=== PATIENT | male | born 1965 | race Caucasian/White ===

== ENCOUNTER 2018-03-15 15:10 | Inpatient (IN) | payer OTHER ==
[~2018-03-15] VITALS: Ht 167.6 cm; Wt 69.4 kg
--- NOTE | 2018-03-15 15:12 | NUR ---
PT BIBA BLS TO BED 3
[2018-03-15 15:13] VITALS: BP 163/83
--- NOTE | 2018-03-15 15:15 | NUR ---
EMS GAVE TYLENOL AT 15.00 PM
--- NOTE | 2018-03-15 15:15 | NUR ---
Note undone in ED - 03/15/18 at 1610 by [email or web address] 53/M kusum from [facility] d/t JANE & elevated blood pressure. Per dice dealer report, [id number]=[phone], [id number]=[phone]. Patient also tachycardiac and hot to the touch. CAN'T GET DIALYSIS TODAY. Patient sts he started to feel "warm" yesterday. MED HX : ESRD WITH HD ON & SAT, dm,htn,cva (left sided weakness), "fx left shoulder and leg". DENIES N/V/D;DIALYSIS SITE AT RIGHT UPPER CHEST & RUDY SHUNT. AAOX4 , WEAK LEFT SIDE. LUNGS CLEAR BL; HR TACHY. PT DENIES ANY CP, SOB, OR COUGH AT THIS TIME; PATIENT STATES PAIN OF 6/10 AT THIS TIME. PATIENT POSITIONED FOR COMFORT; HOB ELEVATED; BEDRAILS UP X2; BED DOWN. LEILANI MONTES MADE AWARE OF PT STATUS. Addendum: 03/15/18 at 1551 by [email or web address] Amendment undone in ED - 03/15/18 at 1556 by [email or web address] BMS GAVE TYLENOL AT 15.00 PM
--- NOTE | 2018-03-15 15:15 | NUR ---
53/M kusum from [facility] d/t JANE & elevated blood pressure. Per mapping editor report, [id number]=[phone], [id number]=[phone]. Patient also tachycardiac and hot to the touch. CAN'T GET DIALYSIS TODAY. Patient sts he started to feel "warm" yesterday. MED HX : ESRD WITH HD ON MON, & SAT, htn,cva (left sided weakness), "fx left shoulder and leg". DENIES N/V/D;DIALYSIS SITE AT RIGHT UPPER CHEST & RUDY SHUNT. AAOX4 , WEAK LEFT SIDE. LUNGS CLEAR BL; HR TACHY. PT DENIES ANY CP, SOB, OR COUGH AT THIS TIME; PATIENT STATES PAIN OF 6/10 AT THIS TIME. PATIENT POSITIONED FOR COMFORT; HOB ELEVATED; BEDRAILS UP X2; BED DOWN. ER MD MADE AWARE OF PT STATUS.
[2018-03-15] MEDS ORDERED: ASPI81CT89 PO (15:32)
[2018-03-15] MEDS ORDERED: ATOR40TA PO (15:35)
--- NOTE | 2018-03-15 15:35 | NUR ---
Jose Carlos huang in [facility] - 03/15/18 at 1542 by [email or web address] X RAY AT BEDSIDE
[2018-03-15] MEDS ORDERED: CALC0.5S6 PO (15:36)
[2018-03-15] MEDS ORDERED: AMLO5TAB PO (15:38)
--- NOTE | 2018-03-15 15:38 | NUR ---
XRAY AT BEDSIDE
[2018-03-15] MEDS ORDERED: LIP80 PO (15:40)
[2018-03-15] MEDS ORDERED: CARV12.5 PO (15:40)
[2018-03-15] MEDS ORDERED: LINA5TAB PO (15:41)
[2018-03-15] MEDS ORDERED: LOSA100T1 PO (15:42)
[2018-03-15] MEDS ORDERED: PHO667 PO (15:43)
[2018-03-15] MEDS ORDERED: MULT-574 PO (15:44)
[2018-03-15] MEDS ORDERED: CLOP75TA26 PO (15:45)
[2018-03-15] MEDS ORDERED: HYDR100T79 PO (15:46)
[2018-03-15 15:47] LABS: BASOPHILS # (AUTO) 0.1 K/uL (0.00-0.22); BASOPHILS % (AUTO) 0.9 % (0.0-2.0); EOSINOPHILS % (AUTO) 0.3 % (0.0-4.0); HEMATOCRIT 31.1 % (36-52); HEMOGLOBIN 9.8 g/dL (12.0-18.0); LYMPHOCYTES # (AUTO) 0.4 K/uL (2.0-11.5); LYMPHOCYTES % (AUTO) 2.9 % (20.5-51.1); MEAN CORPUSCULAR HEMOGLOBIN 26 pg (27-31); MEAN CORPUSCULAR HGB CONC 32 g/dL (33-37); MONOCYTES # (AUTO) 0.7 K/uL (0.8-1.0); MONOCYTES % (AUTO) 4.8 % (1.7-9.3); NEUTROPHILS # (AUTO) 13.3 K/uL (1.8-7.7); NEUTROPHILS % (AUTO) 91.1 % (42.2-75.2); PLATELET COUNT (AUTO) 205 K/uL (140-450); RED BLOOD CELL COUNT(AUTO) 3.75 MIL/uL (4.20-6.10); RED CELL DISTRIBUTION WIDTH 16.9 % (11.6-13.7); WHITE BLOOD COUNT (AUTO) 14.6 K/uL (4.8-10.8)
[2018-03-15 15:48] LABS: APPEARANCE,URINE CLEAR (CLEAR); BILIRUBIN,URINE NEGATIVE (NEGATIVE); BLOOD, URINE 2+ (NEGATIVE); COLOR,URINE YELLOW (YELLOW); LEUKOCYTE ESTERASE ,URINE 1+ (NEGATIVE); NITRITE, URINE NEGATIVE (NEGATIVE); PH,URINE 8.5 (5.0-9.0); UGLUCOSE 1+ (NEGATIVE)
[2018-03-15] MEDS ORDERED: PANT40EC PO (15:50)
[2018-03-15] MEDS ORDERED: FURO-570 PO (15:50)
[2018-03-15 15:54] LABS: RBC,URINE 11-20 (MOD) /HPF (0-5)
[2018-03-15 16:13] LABS: PROTHROMBIN TIME 10.7 secs (10.8-13.4)
[2018-03-15 16:35] LABS: ANION GAP 15.8 (8-16); CARBON DIOXIDE 25.5 mmol/L (21-32); POTASSIUM 6.3 mmol/L (3.5-5.1)
[2018-03-15 16:36] LABS: ALBUMIN 3.2 g/dL (3.4-5.0); CREATININE 11.7 mg/dL (0.7-1.3); TOTAL BILIRUBIN 0.5 mg/dL (0.0-1.0)
[2018-03-15] MEDS ORDERED: CALCIUM CHLORIDE 10% 100 MG/ML SYR IVP ONE (16:40)
[2018-03-15] MEDS ORDERED: SODIUM POLYSTYRENE 15 GM/60 ML UDBTL PO ONE (16:40)
[2018-03-15] MEDS ORDERED: DEXTROSE 50% 50 ML SYR IVP ONE (16:40)
[2018-03-15] MEDS ORDERED: SODIUM BICARBONATE 8.4% PFS 50 MEQ/50 ML SYR IVP ONE (16:40)
[2018-03-15] MEDS ORDERED: INSULIN REGULAR, HUMAN 100 UNIT/ML VIAL IVP ONE (16:40)
[2018-03-15] MEDS ORDERED: LEVOFLOXACIN 750 MG/D5W PREMIX 150 ML IV ONE (16:45)
[2018-03-15] MEDS ORDERED: ONDANSETRON 4 MG/2 ML VIAL IVP PRN (17:10)
--- NOTE | 2018-03-15 17:53 | NUR ---
PT TAKEN TO FLOOR BY PIA TAVERAS AND EMT TAJ
[2018-03-15 17:55] VITALS: BP 182/88
--- NOTE | 2018-03-15 18:04 | NUR ---
Patient will be admitted to care of dr multani. Admited to TELE. Will go to room 113. Belongings list completed. Report to SANDI AUSTNI RN.
--- NOTE | 2018-03-15 18:10 | NUR ---
RECEIVED PT FROM ED NURSE. PT IS ALERT AND AWAKE; PT IS TAJIK-SPEAKING ONLY. SKIN IS INTACT. PT HAS LEFT-SIDED WEAKNESS DUE TO CVA. IV SITE NOTED ON LFA, 18 GAUGE. PT IS ON 2L O2 NC. PT HAS A RUE FISTULA FOR DIALYSIS, THRILL NOTED; DRESSING NOTED ON R UPPER CHEST, PER PATIENT IT WAS AN OLD DIALYSIS ACCESS SITE WHICH WAS D/C RECENTLY. PT IS INCONTINENT. PER PT, HE HAD RECEIVED THE FLU VACCINE 2 WEEKS AGO. MRSA NASAL SWAB SENT TO LAB. BED IS IN LOW POSITION, CALL LIGHT IS WITHIN REACH, WILL CONTINUE TO MONITOR.
--- NOTE | 2018-03-15 18:28 | NUR ---
DR DONAHUE CALLED AND ORDERED HEMODIALYSIS TODAY . CALLED AND NOTIFIED TAYLOR THAT PATIENT NEEDS DIALYSIS TONIGHT.
--- NOTE | 2018-03-15 19:10 | NUR ---
PT REPORT GIVEN AT BEDSIDE TO DIET ATTENDANT NURSE JHOAN. PT ENDORSED IN STABLE CONDITION, NO S/S OF DISTRESS.
--- NOTE | 2018-03-15 19:11 | NUR ---
RECEIVED REPORT FROM DAYSHIFT NURSE AT BEDSIDE FOR CONTINUITY OF CARE. PT AAOX3. PT IV NOTED LFA 18G SALINE LOCK. PT HAS RUE FISTULA. NO SOB NO S/S OF DISTRESS ON 2L O2 NC. TURKMEN SPEAKING. SKIN INTACT RUC OLD CENTRAL LINE. BED LOWERED CALL LIGHT WITHIN REACH WILL CONTINUE TO MONITOR.
[2018-03-15] MEDS ORDERED: VANCOMYCIN PER PHARMACY MC PRN (20:15)
--- NOTE | 2018-03-15 20:25 | NUR ---
RANDI FRANKLIN. PT STATING SOB. AND HR IS 130'S SINUS TACHY. Addendum: 03/15/18 at 2238 by Blanca Robles RN TIME WAS 222
--- NOTE | 2018-03-15 20:30 | NUR ---
ASSESSED VITAL SIGNS. PT IS ON 4L NC O2. PT HAS TEMP 98.6 B, 97% O2 ON 4L NC. HR 131 BP: 188/92.
[2018-03-15] MEDS ORDERED: PIPERACILLIN/TAZOBACTAM 2.25 GM in DEXTROSE 5% 50 ML IV SCH (21:00)
[2018-03-15] MEDS ORDERED: PIPER/TAZO 2.25GM/D5W PREMIX 50 ML IV SCH (21:00)
[2018-03-15] MEDS ORDERED: VANCOMYCIN HCL 750 MG in DEXTROSE 5% 250 ML IV SCH (21:30)
[2018-03-15] MEDS ORDERED: CEFEPIME 1,000 MG in DEXTROSE 5% 50 ML IV SCH (22:00)
[2018-03-15] MEDS ORDERED: METOPROLOL 25 MG TAB PO SCH (22:30)
[2018-03-15] MEDS ORDERED: METOPROLOL 25 MG TAB ONE (22:31)
--- NOTE | 2018-03-15 22:32 | NUR ---
RECEIVED CALL FROM NOEMI AND LET MD KNOW OF PT CURRENT CONDITION. MD ORDERED METOPROLOL 25MG PO Q12H. WILL ADMIN.
--- NOTE | 2018-03-15 22:45 | NUR ---
ADMIN TYLENOL FOR FEVER 102.1. ADDED ICE PACK WILL CONTINUE TO MONITOR.
--- NOTE | 2018-03-15 22:58 | NUR ---
DIALYSIS NURSE AT BEDSIDE WILL START DIALYSIS. DIALYSIS NURSE AWARE OF HR 127 AND HAS ORDERED TO PROCEED WITH DIALYSIS FROM MD. WILL CONTINUE TO MONITOR.
[2018-03-15] MEDS: ACETAMINOPHEN 325 MG TAB PO PRN (23:01)
--- NOTE | 2018-03-15 23:30 | NUR ---
DIALYSIS NURSE COULD NOT GET DIALYSIS STARTED. WILL CALL SENIOR WEB SERVICES DEVELOPER.
--- NOTE | 2018-03-15 23:38 | NUR ---
DOPE POURER AWARE OF FISTULA UNABLE TO DO DIALYSIS. TOO SPOKE TO DIALYSIS NURSE AND AWARE. SPOKE TO MD GAGE AND SHE ASKED ABOUT KAYAXALATE, BICARD, CALCIUM. ORDERED KAYAXALATE 15MG PO ONCE. AND ALSO STATED SHE WILL PLAN TO SCHEDULE CATHETER PLACEMENT TOMORROW. WILL CONTINUE TO MONITOR.
--- NOTE | 2018-03-15 23:45 | NUR ---
TYLENOL EFFECTIVE BUT TEMP STILL ELEVATED AT 101.3. WILL GIVE ICE PACK AGAIN AND CONTINUE TO MONITOR.
[2018-03-15] MEDS ORDERED: CEFEPIME 1,000 MG VIAL ONE (23:58)
[2018-03-16] VITALS: BP 143/81
[2018-03-16] MEDS ORDERED: SODIUM POLYSTYRENE 15 GM/60 ML UDBTL PO SCH
--- NOTE | 2018-03-16 00:07 | NUR ---
TEMP 100.1 WILL CONTINUE TO MONITOR.
[2018-03-16] MEDS ORDERED: VANCOMYCIN 1,000 MG VIAL ONE (00:34)
[2018-03-16] MEDS: MORPHINE SULFATE 2 MG/ML SYR IVP PRN (02:38)
[2018-03-16 03:01] VITALS: BP 143/76
--- NOTE | 2018-03-16 03:38 | NUR ---
ADMIN PAIN MED 1 HR AGO. PAIN MED EFFECTIVE NO SOB NO S/S OF DISTRESS ON RA. WILL CONTINUE TO MONITOR.
[2018-03-16 06:53] LABS: BASOPHILS # (AUTO) 0.1 K/uL (0.00-0.22); BASOPHILS % (AUTO) 0.5 % (0.0-2.0); EOSINOPHILS % (AUTO) 0.2 % (0.0-4.0); HEMOGLOBIN 9.1 g/dL (12.0-18.0); LYMPHOCYTES # (AUTO) 0.9 K/uL (2.0-11.5); LYMPHOCYTES % (AUTO) 8.6 % (20.5-51.1); MEAN CORPUSCULAR HEMOGLOBIN 27 pg (27-31); MEAN CORPUSCULAR HGB CONC 33 g/dL (33-37); MEAN CORPUSCULAR VOLUME 83.9 fL (80-94); MONOCYTES # (AUTO) 0.5 K/uL (0.8-1.0); MONOCYTES % (AUTO) 4.5 % (1.7-9.3); NEUTROPHILS # (AUTO) 8.8 K/uL (1.8-7.7); NEUTROPHILS % (AUTO) 86.2 % (42.2-75.2); PLATELET COUNT (AUTO) 168 K/uL (140-450); RED BLOOD CELL COUNT(AUTO) 3.34 MIL/uL (4.20-6.10); RED CELL DISTRIBUTION WIDTH 16.9 % (11.6-13.7); WHITE BLOOD COUNT (AUTO) 10.2 K/uL (4.8-10.8)
[2018-03-16] MEDS: ACETAMINOPHEN 325 MG TAB PO PRN (06:59)
[2018-03-16 07:17] LABS: ALBUMIN 2.8 g/dL (3.4-5.0); PHOSPHORUS 7.4 mg/dL (2.5-4.9); TOTAL BILIRUBIN 0.6 mg/dL (0.0-1.0)
--- NOTE | 2018-03-16 07:32 | NUR ---
ENDORSED REPORT TO DAYSVAFT NURSE FOR CONTINUITY OF CARE.
--- NOTE | 2018-03-16 07:33 | NUR ---
RECEIVED REPORT FROM THE DOMESTIC TRAVEL CONSULTANT NURSE AT BEDSIDE FOR CONTINUITY OF CARE. PT IS AWAKE AND ORIENTED. INTRODUCED MYSELF AND UPDATED THE BOARDS. PT IS BELIZEAN SPEAKING, BUT SPEAKS SOME DIVEHI. PT HAS A SLIGHT SLURRING OF WORDS. S/P CVA, L SIDED WEAKNESS. PT IS INCONTINENT. REFUSES TO USE THE URINAL. LBM 03/16/18. IV ON L FA 18G SL. R UA FISTULA THAT IS NOT WORKING PER DOMESTIC TRAVEL CONSULTANT. WILL NEED REPLACEMENT CATH FOR DIALYSIS. NO COMPLAINTS OF PAIN. NO SIGNS OF DISTRESS. V/S WITHIN NORMAL RANGE. WILL CONTINUE TO MONITOR PT.
[2018-03-16 07:34] LABS: ANION GAP 16.5 (8-16); CARBON DIOXIDE 23.5 mmol/L (21-32)
[2018-03-16 07:40] LABS: CREATININE 12.1 mg/dL (0.7-1.3)
--- NOTE | 2018-03-16 07:40 | NUR ---
LAB CALLED WITH CRITICAL RESULTS. BUN/CREATININE 98/12.1. PT IS AN HD PT. DID NOT HAVE DIALYSIS YESTERDAY. WILL AWAIT ON MD TO ARRIVE.
[2018-03-16 08:00] VITALS: BP 121/65
--- NOTE | 2018-03-16 08:27 | NUR ---
PATIENT HAS BEEN SCREENED AND CATEGORIZED HIGH NUTRITION RISK. PATIENT WILL BE SEEN WITHIN 1-2 DAYS OF ADMISSION. 03/16/18 03/17/[address]
[2018-03-16] MEDS: VIT-B COMP/VIT-C/FOLIC ACID 1 TAB PO SCH (08:40)
[2018-03-16] MEDS: METOPROLOL 25 MG TAB PO SCH ×2 (08:40→20:10)
[2018-03-16] MEDS: CALCIUM ACETATE 667 MG TAB PO SCH ×3 (08:42→16:43)
--- NOTE | 2018-03-16 08:50 | NUR ---
ADMINISTERED MORNING MEDS. PT TOLERATED WELL. PT SITTING ON SIDE OF BED. FINISHED BREAKFAST. WILL CONTINUE TO MONITOR PT.
--- NOTE | 2018-03-16 09:31 | NUR ---
DR AYALA IS HERE TO ASSESS PT. NOTIFIED HER OF HD FISTULA NOT WORKING. SHE WILL CONTACT DR RALPH AND SEE IF HE CAN PUT IN A JANIS CATH FOR DIALYSIS. ASKED HER FOR AN ORDER FOR PRN NC O2 2L. PT AT 92% ON ROOM AIR BUT WITH EXERTION, IT DROPS TO 80'S. WILL CONTINUE TO MONITOR PT.
--- NOTE | 2018-03-16 09:42 | NUR ---
LAB CALLED BLOOD CULTURE: GRAM POSITIVE COCCI IN CLUSTERS.
[2018-03-16 12:00] VITALS: BP 123/67
--- NOTE | 2018-03-16 12:25 | NUR ---
PT EATING HIS LUNCH. SITTING ON THE SIDE OF BED, NO SIGNS OF COMPLAINTS. ADMINISTERED PHOSLO AND INSULIN COVERAGE. PT TOLERATED WELL. WILL CONTINUE TO MONITOR PT.
[2018-03-16] MEDS: INSULIN LISPRO SLIDING SCALE 100 UNITS/ML VIAL SUBQ PRN (12:27)
[2018-03-16] MEDS: BLOOD GLUCOSE MONITORING 1 DEV DEV FS SCH ×3 (12:29→20:27)
--- NOTE | 2018-03-16 13:20 | NUR ---
CM NOTE INITIAL REVIEW FAXED TO [facility] [phone] VANITA # [phone].
--- NOTE | 2018-03-16 14:10 | NUR ---
PT IS WATCHING TV. NO COMPLAINTS AT THIS TIME. WILL CONTINUE TO MONITOR PT.
--- NOTE | 2018-03-16 14:48 | NUR ---
03/16/18 RD INITIAL ASSESSMENT COMPLETED PLEASE REFER TO NUTRITION ASSESSMENT UNDER CARE ACTIVITY FOR ESTIMATED NUTRITIONAL NEEDS. 1. CONTINUE CCHO-60,RENAL DIET TOLERATED 2. RECOMMEND NEPRO TID. 3. RD TO FOLLOW-UP 5-7 DAYS, LOW RISK ERIK ARNETT, RD
--- NOTE | 2018-03-16 15:40 | NUR ---
DAUGHTER IS HERE, ASKING ABOUT WHEN HE WILL HAVE THE DIALYSIS. STILL WAITING ON DR RALPH. AFTER I HEAR FROM DR RALPH, I WILL NEED TO LET BRANDON, PROGRAMMING DIRECTOR KNOW. WE WILL CONTINUE TO MONITOR PT.
[2018-03-16 16:00] VITALS: BP 140/79
--- NOTE | 2018-03-16 17:45 | NUR ---
WE ARE HOLDING PT'S DINNER JUST IN CASE DR RALPH DOES DECIDE TO PUT IN A JANIS CATH FOR HD. PER DR DONAHUE, ONCE HE PUTS IN THE JANIS CATH, PT CAN HAVE DIALYSIS TOMORROW MORNING. WILL AWAIT DR RALPH'S ORDERS.
--- NOTE | 2018-03-16 19:10 | NUR ---
ENDORSED PT TO THE RETAIL SUPPORT SPECIALIST NURSE AT BEDSIDE FOR CONTINUITY OF CARE. EVERYTHING IS AT BEDSIDE FOR PROCEDURE. CONSENT AND TIME OUT SHEET IN CHART. WAITING ON DR RALPH. US TECH AND CXRY ORDERED AND ON STANDBY. DIALYSIS TOMORROW MORNING. BRANDON [place] HISTORY PROFESSOR AWARE. ALL ORDERS AND LABS PRINTED AND PLACED IN SOFT CHART.
--- NOTE | 2018-03-16 19:11 | NUR ---
RECEIVED REPORT FROM DAYSHIFT NURSE AT BEDSIDE FOR CONTINUITY OF CARE. PT AAOX3. NO SOB NO S/S OF DISTRESS ON RA. PT IV NOTED LAC 18G SALINE LOCK. ALSO HAS FISTULA RUDY. BED LOWERED CALL LIGHT WITHIN REACH WILL CONTINUE TO MONITOR.
[2018-03-16 20:00] VITALS: BP 148/79
[2018-03-16] MEDS ORDERED: CEFEPIME 1,000 MG in DEXTROSE 5% 50 ML IV SCH ×4 (21:00)
--- NOTE | 2018-03-16 23:19 | NUR ---
READ BACK XRAY RESULTS TO ANDRE PAULSON FOR L JANIS CATH PLACEMENT. MD RALPH AWARE AND STATED TO GO AHEAD WITH DIALYSIS AT 0500 03/17.
[2018-03-17] VITALS: BP 144/75
[2018-03-17 04:00] VITALS: BP 147/74
[2018-03-17] MEDS: BLOOD GLUCOSE MONITORING 1 DEV DEV FS SCH ×4 (06:47→20:36)
[2018-03-17 07:04] LABS: ALBUMIN 2.7 g/dL (3.4-5.0); CARBON DIOXIDE 23.8 mmol/L (21-32); POTASSIUM 4.8 mmol/L (3.5-5.1); TOTAL BILIRUBIN 0.5 mg/dL (0.0-1.0)
[2018-03-17 07:14] LABS: HEMATOCRIT 24.3 % (36-52); HEMOGLOBIN 7.7 g/dL (12.0-18.0); MEAN CORPUSCULAR VOLUME 84.6 fL (80-94); RED BLOOD CELL COUNT(AUTO) 2.87 MIL/uL (4.20-6.10); WHITE BLOOD COUNT (AUTO) 5.9 K/uL (4.8-10.8)
[2018-03-17 07:15] LABS: BASOPHILS # (AUTO) 0.6 K/uL (0.00-0.22); BASOPHILS % (AUTO) 0.6 % (0.0-2.0); EOSINOPHILS # (AUTO) 1.9 K/uL (0-0.4); EOSINOPHILS % (AUTO) 1.9 % (0.0-4.0); LYMPHOCYTES # (AUTO) 1.2 K/uL (2.0-11.5); LYMPHOCYTES % (AUTO) 20.5 % (20.5-51.1); MEAN CORPUSCULAR HEMOGLOBIN 27 pg (27-31); MEAN CORPUSCULAR HGB CONC 32 g/dL (33-37); MONOCYTES # (AUTO) 0.7 K/uL (0.8-1.0); MONOCYTES % (AUTO) 11.3 % (1.7-9.3); NEUTROPHILS # (AUTO) 3.9 K/uL (1.8-7.7); NEUTROPHILS % (AUTO) 65.7 % (42.2-75.2); PLATELET COUNT (AUTO) 159 K/uL (140-450); RED CELL DISTRIBUTION WIDTH 15.8 % (11.6-13.7)
--- NOTE | 2018-03-17 07:19 | NUR ---
ENDORSED REPORT TO DAYSHIFT NURSE AT BEDSIDE FOR CONTINUITY OF CARE.
[2018-03-17 07:45] LABS: CREATININE 13.6 mg/dL (0.7-1.3)
--- NOTE | 2018-03-17 07:50 | NUR ---
PATIENT WAS AWAKE, ALERT, SITTING ON THE BED COMFORTABLY. RESPIRATION EVEN, UNLABOR ON ROOM AIR. SKIN DRY AND WARM. IV PATENT AND INTACT. JANIS CATH DRESSING DRY AND CLEAN. DENIED PAIN, SOB AT THIS TIME. PLAN OF CARE WAS DISCUSSED WITH PATIENT. BED AT LOW POSITION, SIDE RAILS UP. CALL LIGHT WITHIN REACH. FALL RISK PRECAUTION ENSURED.
[2018-03-17 08:00] VITALS: BP 141/73
[2018-03-17] MEDS: CALCIUM ACETATE 667 MG TAB PO SCH ×3 (08:45→17:29)
[2018-03-17] MEDS: VIT-B COMP/VIT-C/FOLIC ACID 1 TAB PO SCH (08:46)
[2018-03-17] MEDS: METOPROLOL 25 MG TAB PO SCH ×2 (08:49→20:29)
--- NOTE | 2018-03-17 11:30 | NUR ---
PATIENT AWAKE, ALERT. RESPIRATION EVEN, UNLABOR ON ROOM AIR. DENIED PAIN AT THIS TIME. NO DISTRESS NOTED. CALL LIGHT WITHIN REACH
[2018-03-17 12:00] VITALS: BP 133/67
[2018-03-17] MEDS: INSULIN LISPRO SLIDING SCALE 100 UNITS/ML VIAL SUBQ PRN ×3 (12:17→20:35)
--- NOTE | 2018-03-17 12:25 | NUR ---
PATIENT COMPLAINED OF SOB ON ROOM AIR. PATIENT WAS PLACED ON 2L O2 VIA NC. MEDS WERE GIVEN PER ORDER
[2018-03-17] MEDS: MORPHINE SULFATE 2 MG/ML SYR IVP PRN ×2 (13:41→19:51)
[2018-03-17] MEDS: MUPIROCIN 2% OINT 22 GM TUBE TP SCH (14:25)
[2018-03-17] MEDS: CHLORHEXADINE GLUC 2% CLOTH TP SCH (14:25)
--- NOTE | 2018-03-17 14:30 | NUR ---
PATIENT WAS SLEEPING COMFORATBLY. RESPIRATION EVEN, UNLABOR ON 2L NC, SP02 100%. NO DISTRESS NOTED AT THIS TIME. DIALYSIS WAS AT BEDSIDE. CALL LIGHT WITHIN REACH
[2018-03-17 16:00] VITALS: BP 144/71
--- NOTE | 2018-03-17 16:15 | NUR ---
PATIENT AWAKE, ALERT, SITTING ON EOB COMFORTABLY. RESPIRATION EVEN, UNLABOR ON 2L NC. NO DISTRESS NOTED AT THIS TIME. DENIED PAIN, SOB. CALL LIGHT WITHIN REACH
--- NOTE | 2018-03-17 18:15 | NUR ---
PATIENT AWAKE, ALERT. RESPIRATION EVEN, UNLABOR ON 2L NC. NO DISTRESS NOTED AT THIS TIME. IV PATENT AND INTACT. CALL LIGHT WITHIN REACH
--- NOTE | 2018-03-17 19:24 | NUR ---
ENDORSEMENT GIVEN TO THE SALES AND MARKETING DIRECTOR NURSE. PATIENT IS STABLE AT THIS TIME.
--- NOTE | 2018-03-17 19:25 | NUR ---
RECEIVED PT ON BED, AAOX4, MOSTLY CAMBODIAN SPEAKING BUT SPEAKS A LITTLE SURINAMESE, VITAL SIGNS TAKEN, BP SLIGHTLY ELEVATED, ST ON TELE, DENIES CHEST PAIN, NO SOB NOTED, COMPLAINING OF PAIN TO THE RT UA AV SHUNT SITE, WILL MEDICATE PRN, WITH LEFT IJ HD CATH IN PLACE, DRESSING DRY AND INTACT, PLAN OF CARE DISCUSSED, SAFETY MEASURES IN PLACE, , CALL LIGHT WITHIN REACH, MAINTAIN ON CONTACT ISOLATION.
[2018-03-17 20:00] VITALS: BP 153/77
--- NOTE | 2018-03-17 20:35 | NUR ---
PT SITTING ON SIDE OF BED, BLOOD SUGAR CHECKED WITH 256 RESULT, COVERAGE GIVEN, SNACK PROVIDED, DUE MEDS ADMINISTERED, ALL NEEDS ATTENDED, INSTRUCTED TO USE CALL LIGHT FOR ASSISTANCE, VERBALIZED UNDERSTANDING.
--- NOTE | 2018-03-17 22:10 | NUR ---
PT ASSISTED TO LIE DOWN ON THE BED BY GAETANO JUNIOR, LT IJ HD CATH DRESSING REINFORCED WITH TAPE, MONITORED CLOSELY.
[2018-03-18] VITALS: BP 151/72
--- NOTE | 2018-03-18 03:50 | NUR ---
PT SLEEPING WITH BLANKET OVER HIS HEAD, EASILY AROUSABLE, VITAL SIGNS STABLE, BP SLIGHTLY ELEVATED, DENIES PAIN AND NO SOB NOTED, CONTINUE ON SAFETY PRECAUTION WITH SIDE RAILS UP AND BED ALARM ON, MONITORED CLOSELY.
[2018-03-18 04:00] VITALS: BP 148/85
--- NOTE | 2018-03-18 06:00 | NUR ---
BLOOD SUGAR CHECKED WITH 99 RESULT, NO COVERAGE NEEDED, DENIES PAIN, NO SOB NOTED, MONITORED CLOSELY.
[2018-03-18] MEDS: BLOOD GLUCOSE MONITORING 1 DEV DEV FS SCH ×4 (06:43→20:56)
--- NOTE | 2018-03-18 06:55 | NUR ---
IV LINE LEAKING, NEW IV LINE STARTED TO LEFT HAND WITH GOOD BLOOD RETURN, VANCOMYCIN IVPB STARTED, MONITOR FOR ANY REACTION.
[2018-03-18] MEDS ORDERED: VANCOMYCIN 1,000 MG VIAL IV SCH (07:00)
--- NOTE | 2018-03-18 07:22 | NUR ---
PT AWAKE, NO SIGNS OF DISTRESS, REPORT GIVEN TO RN LOI FOR CONTINUITY OF CARE.
--- NOTE | 2018-03-18 07:24 | NUR ---
RECEIVED BEDSIDE REPORT FROM NURSERY SCHOOL TEACHER NURSE. PATIENT IS AWAKE, ALERT AND ORIENTEDX4. PATIENT HAS URINAL AT BEDSIDE D/T WEAKNESS. SKIN IS INTACT. TELE MONITOR IN PLACE. RUDY AV SHUNT, NOT WORKING. RESTRICTED ARM BAND ON, SIGN POSTED. R EJ HD CATH PLACED ON ACT 5TH. R HAND 22G INFUSING VANCO AT 165. CLEAN, DRY AND INTACT. CONTACT PRECAUTIONS FOR MRSA NARES. FALL PRECAUTIONS IN PLACE. WILL CONTINUE TO MONITOR THE PATIENT. BED IN LOW POSITION. CALL LIGHT WITHIN REACH
[2018-03-18 08:00] VITALS: BP 147/81
[2018-03-18] MEDS: CALCIUM ACETATE 667 MG TAB PO SCH ×3 (08:40→16:42)
[2018-03-18] MEDS: METOPROLOL 25 MG TAB PO SCH ×2 (08:40→20:15)
[2018-03-18] MEDS: VIT-B COMP/VIT-C/FOLIC ACID 1 TAB PO SCH (08:40)
[2018-03-18] MEDS: MORPHINE SULFATE 2 MG/ML SYR IVP PRN (09:00)
--- NOTE | 2018-03-18 09:00 | NUR ---
ADMINISTERED MEDS AND PRN PAIN MEDS. PATIENT TOLERATED WELL. NO SIGNS OF DISTRESS. IV IS INTACT. BED IN LOW POSITION. PATIENT HAD A BM. CLEANED AND TURNED PATIENT W BOILER SHOP MECHANIC. WILL CONTINUE TO MONITOR THE PATIENT
[2018-03-18 10:14] LABS: HEPATITIS A ANTIBODY IGM Negative (Negative); HEPATITIS B CORE AB TOTAL Negative (Negative); HEPATITIS B SURFACE ANTIBODY Reactive (.); HEPATITIS B SURFACE ANTIGEN Negative (Negative)
--- NOTE | 2018-03-18 11:00 | NUR ---
IS AT BEDSIDE. NO COMPLAINTS AT THIS TIME. WILL CONTINUE TO MONITOR THE PATIENT
[2018-03-18 12:00] VITALS: BP 155/68
[2018-03-18] MEDS: CHLORHEXADINE GLUC 2% CLOTH TP SCH (12:27)
[2018-03-18] MEDS: MUPIROCIN 2% OINT 22 GM TUBE TP SCH (12:27)
[2018-03-18] MEDS: INSULIN LISPRO SLIDING SCALE 100 UNITS/ML VIAL SUBQ PRN ×2 (12:30→20:23)
--- NOTE | 2018-03-18 12:30 | NUR ---
ADMINISTERED MED. PATIENT TOLERATED WELL. NO SIGNS OF DISTRESS. BED IN LOW POSITION. WILL CONTINUE TO MONITOR THE PATIENT
--- NOTE | 2018-03-18 14:00 | NUR ---
PATIENT SLEEPING. NO SIGNS OF DISTRESS. WILL CONTINUE TO MONITOR THE PATIENT
[2018-03-18 15:00] LABS: BASOPHILS % (AUTO) 1.1 % (0.0-2.0); EOSINOPHILS # (AUTO) 0.2 K/uL (0-0.4); EOSINOPHILS % (AUTO) 4.5 % (0.0-4.0); HEMATOCRIT 22.2 % (36-52); HEMOGLOBIN 7.1 g/dL (12.0-18.0); LYMPHOCYTES # (AUTO) 1.1 K/uL (2.0-11.5); LYMPHOCYTES % (AUTO) 24.4 % (20.5-51.1); MEAN CORPUSCULAR HEMOGLOBIN 27 pg (27-31); MEAN CORPUSCULAR HGB CONC 32 g/dL (33-37); MEAN CORPUSCULAR VOLUME 83.7 fL (80-94); MONOCYTES # (AUTO) 0.7 K/uL (0.8-1.0); MONOCYTES % (AUTO) 14.4 % (1.7-9.3); NEUTROPHILS # (AUTO) 2.6 K/uL (1.8-7.7); NEUTROPHILS % (AUTO) 55.6 % (42.2-75.2); PLATELET COUNT (AUTO) 145 K/uL (140-450); RED BLOOD CELL COUNT(AUTO) 2.66 MIL/uL (4.20-6.10); WHITE BLOOD COUNT (AUTO) 4.6 K/uL (4.8-10.8)
[2018-03-18 15:25] LABS: ALBUMIN 2.7 g/dL (3.4-5.0); ANION GAP 12.3 (8-16); CARBON DIOXIDE 27.8 mmol/L (21-32); POTASSIUM 4.1 mmol/L (3.5-5.1); TOTAL BILIRUBIN 0.4 mg/dL (0.0-1.0)
[2018-03-18 15:30] LABS: CREATININE 9.2 mg/dL (0.7-1.3)
[2018-03-18 16:00] VITALS: BP 136/71
--- NOTE | 2018-03-18 16:46 | NUR ---
ADMINISTERED MEDS. PATIENT TOLERATED WELL. BED IN LOW POSITION. CALL LIGHT WITHIN REACH. BS 145, NO INSULIN NEEDED.
--- NOTE | 2018-03-18 17:31 | NUR ---
IV WAS OUT. TIP WAS INTACT. NEW IV PLACED ON L HAND 22G. SALINE LOCK. PATIENT TOLERATED WELL. WILL CONTINUE TO MONITOR
--- NOTE | 2018-03-18 18:00 | NUR ---
PATIENT IS EATING. NO SIGNS OF DISTRESS, WILL CONTINUE TO MONITOR THE PATIENT.
--- NOTE | 2018-03-18 19:13 | NUR ---
GAVE BEDSIDE REPORT TO HOSPITAL LABORATORY TECHNICIAN NURSE. PATIENT ENDORSED IN STABLE CONDITION
--- NOTE | 2018-03-18 19:18 | NUR ---
RECEIVED PT SLEEPING, EASILY AROUSABLE, AAOX4, VITAL SIGNS STABLE, DENIES ANY PAIN, NO SOB NOTED, WITH NON-FUNCTIONING RT UA AV SHUNT SITE, WITH LEFT IJ HD CATH IN PLACE, DRESSING DRY BUT LOOSE, WILL REINFORCED, PLAN OF CARE DISCUSSED, SAFETY MEASURES IN PLACE DUE TO LEFT SIDED WEAKNESS SEC TO CVA, CALL LIGHT WITHIN REACH, MAINTAIN ON CONTACT ISOLATION.
[2018-03-18 20:00] VITALS: BP 144/75
[2018-03-18] MEDS ORDERED: cefTRIAXone 1,000 MG VIAL ONE (20:10)
--- NOTE | 2018-03-18 20:30 | NUR ---
BLOOD SUGAR CHECKED WITH 187 RESULT, COVERAGE GIVEN, SNACK PROVIDED, DUE MEDS ADMINISTERED, CALLED [facility] AND TALKED TO TAYLOR TO SCHEDULE HEMODIALYSIS FOR TOMORROW, ALL NEEDS ATTENDED.
--- NOTE | 2018-03-18 21:43 | NUR ---
SEEN PT SITTING ON SIDE OF BED WITH DRESSING TO LT IJ HD CATH PEELING OFF, REINFORCED DRESSING WITH COMPOSITE AND CLOTH TAPE, ASSISTED BY GAETANO JUNIOR TO LAY ON BED, MONITORED CLOSELY.
[2018-03-19] VITALS: BP 149/76
--- NOTE | 2018-03-19 | NUR ---
PT AWAKE WATCHING TV, VITAL SIGNS STABLE, DENIES ANY PAIN, NO NEEDS AT THIS TIME, MONITORED CLOSELY.
[2018-03-19] MEDS: MORPHINE SULFATE 2 MG/ML SYR IVP PRN (03:32)
--- NOTE | 2018-03-19 03:35 | NUR ---
PT COMPLAINING OF ARM PAIN, VITAL SIGNS TAKEN, BP SLIGHTLY ELEVATED, NO SOB NOTED, MEDICATED FOR PAIN WITH MORPHINE IVP, SAFETY MEASURES IN PLACE, MONITORED CLOSELY.
[2018-03-19 04:00] VITALS: BP 158/75
--- NOTE | 2018-03-19 06:00 | NUR ---
PT ASLEEP, EASILY AROUSABLE, BLOOD SUGAR CHECKED WITH 100 RESULT, DENIES PAIN AT THIS TIME, FOR HEMODIALYSIS TODAY, MONITORED CLOSELY.
[2018-03-19] MEDS: BLOOD GLUCOSE MONITORING 1 DEV DEV FS SCH ×4 (06:35→21:00)
--- NOTE | 2018-03-19 07:25 | NUR ---
RECEIVED REPORT FROM FREE LANCE ARTIST RN. PT RESTING IN BED COMFORTABLY. A/O X4. VERBALIZES NEEDS. SKIN DRY AND WARM TO TOUCH. LUNGS CLEAR ON AUSCULTATION. NON-FUNCTIONAL AV SHUNT ON RUDY NOTED. NEW HD CATHETER ON LEFT IJ COVERED WITH DRESSING. DRESSING INTACT. PERIPHERAL LINE ON LEFT HAND 22G NOTED. INTACT LINE. ABDOMEN SOFT, ROUND AND NON-TENDER. ACTIVE BOWEL SOUND. DENIES N/V/D AT THIS TIME. DENIES PAIN. VS WNL. BED IN LOW POSITION LOCKED. HOB ELEVATED. WILL CONTINUE TO MONITOR.
--- NOTE | 2018-03-19 07:28 | NUR ---
PT AWAKE, NO DISTRESS NOTED, BEDSIDE REPORT GIVEN TO PIA LEO FOR CONTINUITY OF CARE.
[2018-03-19 07:37] LABS: BASOPHILS # (AUTO) 0.1 K/uL (0.00-0.22); BASOPHILS % (AUTO) 1.5 % (0.0-2.0); EOSINOPHILS # (AUTO) 0.3 K/uL (0-0.4); EOSINOPHILS % (AUTO) 3.8 % (0.0-4.0); HEMATOCRIT 24.6 % (36-52); HEMOGLOBIN 7.7 g/dL (12.0-18.0); LYMPHOCYTES # (AUTO) 1.5 K/uL (2.0-11.5); LYMPHOCYTES % (AUTO) 22.2 % (20.5-51.1); MEAN CORPUSCULAR HEMOGLOBIN 27 pg (27-31); MEAN CORPUSCULAR HGB CONC 32 g/dL (33-37); MEAN CORPUSCULAR VOLUME 84.2 fL (80-94); MONOCYTES # (AUTO) 0.4 K/uL (0.8-1.0); MONOCYTES % (AUTO) 5.6 % (1.7-9.3); NEUTROPHILS # (AUTO) 4.5 K/uL (1.8-7.7); NEUTROPHILS % (AUTO) 66.9 % (42.2-75.2); PLATELET COUNT (AUTO) 165 K/uL (140-450); RED BLOOD CELL COUNT(AUTO) 2.92 MIL/uL (4.20-6.10); RED CELL DISTRIBUTION WIDTH 16.7 % (11.6-13.7); WHITE BLOOD COUNT (AUTO) 6.7 K/uL (4.8-10.8)
[2018-03-19 07:51] LABS: ANION GAP 20.3 (8-16); POTASSIUM 5.1 mmol/L (3.5-5.1); TOTAL BILIRUBIN 0.4 mg/dL (0.0-1.0)
[2018-03-19 07:54] LABS: CREATININE 10.2 mg/dL (0.7-1.3)
[2018-03-19 07:58] LABS: CARBON DIOXIDE 23.1 mmol/L (21-32)
[2018-03-19 08:00] VITALS: BP 134/72
[2018-03-19] MEDS: METOPROLOL 25 MG TAB PO SCH ×2 (08:06→22:24)
--- NOTE | 2018-03-19 08:06 | NUR ---
PT IS SCHEDULED FOR HD TOADY. BP WNL. LOPRESSOR WILL NOT BE ADMINISTERED.
[2018-03-19] MEDS: CALCIUM ACETATE 667 MG TAB PO SCH ×3 (08:13→16:45)
[2018-03-19] MEDS: VIT-B COMP/VIT-C/FOLIC ACID 1 TAB PO SCH (08:13)
--- NOTE | 2018-03-19 08:30 | NUR ---
BREAKFAST PROVIDED. PT SAID WILL EAT LATER.
--- NOTE | 2018-03-19 08:46 | NUR ---
RECEIVED CALL FROM DR. AYALA. MADE AWARE ABOUT CRITICAL LAB RECEIVED; BUN: 98 CR: 10.2 Ca: 8.1.
--- NOTE | 2018-03-19 09:17 | NUR ---
PT ASSISTED TO SIT AT BEDSIDE. TRAY PROVIDED. EATING BREAKFAST AT THIS TIME.
--- NOTE | 2018-03-19 09:58 | NUR ---
PAGED BRANDON PH #[phone] TO FOLLOW UP HD.
--- NOTE | 2018-03-19 09:59 | NUR ---
RECEIVED CALL BACK FROM BRANDON SAID "LET ME CALL MY NURSE AND WILL CALL YOU." WAITING FOR CALL BACK.
[2018-03-19] MEDS: INSULIN LISPRO SLIDING SCALE 100 UNITS/ML VIAL SUBQ PRN ×2 (11:32→16:51)
[2018-03-19 12:00] VITALS: BP 137/67
[2018-03-19] MEDS: MUPIROCIN 2% OINT 22 GM TUBE TP SCH (12:51)
[2018-03-19] MEDS: CHLORHEXADINE GLUC 2% CLOTH TP SCH (12:51)
--- NOTE | 2018-03-19 13:57 | NUR ---
FAXED CONCURRENT REVIEW TO [facility] [phone] PHONE VANITA [phone]
--- NOTE | 2018-03-19 15:41 | NUR ---
HD COMPLETED. PER HD NURSE HD OUTPUT WAS 2500 ML . BP 147/66 HR 72. NO ACUTE RESPIRATORY DISTRESS NOTED. NO CHANGE IN LOC. WILL CONTINUE TO MONITOR.
[2018-03-19 16:00] VITALS: BP 149/68
--- NOTE | 2018-03-19 18:00 | NUR ---
RESTING IN BED. WATCHING TV. DENIES PAIN AT THIS TIME. LIJ HD CATH SITE DRESSING INTACT. WILL CONTINUE TO MONITOR.
--- NOTE | 2018-03-19 19:37 | NUR ---
REPORT GIVEN TO FIELD HAULER RN FOR CONTINUITY OF CARE. PT ON STABLE CONDITION.
--- NOTE | 2018-03-19 19:40 | NUR ---
RECEIVED PT FROM AHMET RN PT MONEGASQUE SPEAKER AAOX4 ON BEDREST JANIS CATH ON LEFT IJ ON TELEMETRY SR IV ON LEFT HAND INFUSING WELL AV SHUNT ON RT UA NOT FUNCTIONAL INITIAL ASSESSMENT DONE
[2018-03-19 20:00] VITALS: BP 152/75
[2018-03-19] MEDS ORDERED: VANCOMYCIN 1,000 MG in NACL 0.9% 250 ML IV SCH (20:00)
--- NOTE | 2018-03-19 21:40 | NUR ---
BLOOD SUGAR TEST 127 NOT COVERAGE ON TELEMETRY SR
[2018-03-20] VITALS: BP 137/72
--- NOTE | 2018-03-20 01:00 | NUR ---
PT AWAKE WATCHING TV NOT DISTRESS NOTED ON TELEMETRY SR , PT DOES NOT COMPLAINT OF SNY DISCOMFORT AT THIS TIME
[2018-03-20 04:00] VITALS: BP 126/71
--- NOTE | 2018-03-20 04:00 | NUR ---
SPONGE BATH GIVEN LINEN CHANGED REPOSITIONED Q2H NOT DISTRESS NOTED , PT ON TELEMETRY SR
[2018-03-20 06:22] LABS: ALBUMIN 2.6 g/dL (3.4-5.0); CARBON DIOXIDE 26.4 mmol/L (21-32); POTASSIUM 4.4 mmol/L (3.5-5.1); TOTAL BILIRUBIN 0.3 mg/dL (0.0-1.0)
[2018-03-20 06:33] LABS: CREATININE 7.4 mg/dL (0.7-1.3)
[2018-03-20 06:36] LABS: HEMOGLOBIN 6.9 g/dL (12.0-18.0); RED BLOOD CELL COUNT(AUTO) 2.58 MIL/uL (4.20-6.10)
[2018-03-20 06:37] LABS: HEMATOCRIT 21.8 % (36-52); MEAN CORPUSCULAR HEMOGLOBIN 27 pg (27-31); MEAN CORPUSCULAR HGB CONC 32 g/dL (33-37); MEAN CORPUSCULAR VOLUME 83.9 fL (80-94); PLATELET COUNT (AUTO) 168 K/uL (140-450); RED CELL DISTRIBUTION WIDTH 15.2 % (11.6-13.7); WHITE BLOOD COUNT (AUTO) 6.3 K/uL (4.8-10.8)
[2018-03-20 06:38] LABS: BASOPHILS % (AUTO) 0.5 % (0.0-2.0); EOSINOPHILS % (AUTO) 3.6 % (0.0-4.0); LYMPHOCYTES # (AUTO) 1.5 K/uL (2.0-11.5); LYMPHOCYTES % (AUTO) 23.8 % (20.5-51.1); MONOCYTES # (AUTO) 0.5 K/uL (0.8-1.0); MONOCYTES % (AUTO) 7.5 % (1.7-9.3); NEUTROPHILS # (AUTO) 4.1 K/uL (1.8-7.7); NEUTROPHILS % (AUTO) 64.6 % (42.2-75.2)
[2018-03-20 06:39] LABS: EOSINOPHILS # (AUTO) 0.2 K/uL (0-0.4)
[2018-03-20] MEDS: BLOOD GLUCOSE MONITORING 1 DEV DEV FS SCH ×4 (06:52→21:26)
--- NOTE | 2018-03-20 06:52 | NUR ---
BLOOD SUGAR TEST 104 , AND LAB YAHAIRA TO REPORT CRITICAL LAB HH6.9/21.8 [address] BUN71/7.4 DR AYALA WAS CALL AND DR FRANKLIN AUTOMATION CONTROLS SPECIALIST WAITING FOR HIM TO CALL BACK
--- NOTE | 2018-03-20 07:20 | NUR ---
REPORT RECEIVED FROM RAILWAY TRACK PLANT OPERATOR NURSE, PT AWAKE ALERT, SITTING UP IN BED IN NAD, RESP EVEN UNLABORED, SKIN WARM DRY COLOR WNL, DENIES PAIN OR DISCOMFORT, PLAN OF CARE REVIEWED, NO NEEDS AT THIS TIME, ALL SAFETY MEASURES IN PLACE, WILL CONTINUE TO MONITOR.
--- NOTE | 2018-03-20 07:53 | NUR ---
PT SITTING UP AT SIDE OF BED EATING BREAKFAST.
[2018-03-20 08:00] VITALS: BP 130/63
[2018-03-20] MEDS: CALCIUM ACETATE 667 MG TAB PO SCH ×3 (08:43→16:47)
[2018-03-20] MEDS: METOPROLOL 25 MG TAB PO SCH ×2 (08:43→21:30)
[2018-03-20] MEDS: VIT-B COMP/VIT-C/FOLIC ACID 1 TAB PO SCH (08:43)
--- NOTE | 2018-03-20 08:45 | NUR ---
AM MEDS GIVEN, PT ROBERTO PILLS WELL, DENIES PAIN, WARM BLANKET PROVIDED FOR COMFORT, IVF INFUSING WELL, SITE CLEAR, WNL, CALL PHELAN WITHIN REACH, SIDE RAILS UP, [facility] TO MONIT[facility]
--- NOTE | 2018-03-20 11:18 | NUR ---
FAXED CONCURRENT REVIEW TO [facility] [phone] PHONE VANITA [phone]
[2018-03-20 12:00] VITALS: BP 140/71
[2018-03-20] MEDS: CHLORHEXADINE GLUC 2% CLOTH TP SCH (12:06)
[2018-03-20] MEDS: MUPIROCIN 2% OINT 22 GM TUBE TP SCH (12:06)
[2018-03-20] MEDS: INSULIN LISPRO SLIDING SCALE 100 UNITS/ML VIAL SUBQ PRN ×3 (12:08→21:29)
--- NOTE | 2018-03-20 12:14 | NUR ---
PT SLEEPING QUIETLY, AROUSES TO VOICE, DUE MED GIVEN, INSULIN 4 UNITS GIVEN PER SLIDING SCALE FOR BS 204.
--- NOTE | 2018-03-20 13:00 | NUR ---
DR AYALA AT BEDSIDE.
[2018-03-20] MEDS ORDERED: PNEUMOCOCCAL VACCINE 23 MCG/0.5 ML VIAL IMVAC SCH (15:00)
[2018-03-20 16:00] VITALS: BP 124/63
--- NOTE | 2018-03-20 16:00 | NUR ---
DR DONAHUE AT [facility]
--- NOTE | 2018-03-20 19:22 | NUR ---
REPORT GIVEN TO PIPPA SHIFT NURSE, PT IN STABLE CONDITION.
--- NOTE | 2018-03-20 19:25 | NUR ---
RECEIVED PT FROM REMINGTON RN PT SWEDISH SPEAKER AAOX4 ON BED REST ON TELEMETRY SR AV SHUNT ON RT ARM NOT FUNCTIONING AND LEFT IJ JANIS CATH FOR DIALYSIS DENIES ANY PAIN INITIAL ASSESSMENT DONE
[2018-03-20 20:00] VITALS: BP 142/73
--- NOTE | 2018-03-20 21:00 | NUR ---
DR GONZALEZ IS HERE AND SEE THE PT
--- NOTE | 2018-03-20 21:30 | NUR ---
BLOOD SUGAR TEST 191 COVERAGE WITH 2 UNITS HUMALOG SUBQ FOLLOW PROTOCOL
[2018-03-21] VITALS: BP 148/83
--- NOTE | 2018-03-21 | NUR ---
PT REPOSITIONED Q2H NOT DISTRESS NOTED ON TELEMETRY SR
[2018-03-21 04:00] VITALS: BP 141/87
--- NOTE | 2018-03-21 04:00 | NUR ---
SPONGE BATH GIVNE LINEN CHANGED REPOSITIONED Q2H SR ON TELEMETRY NOT DISTRESS NOTED
[2018-03-21] MEDS: BLOOD GLUCOSE MONITORING 1 DEV DEV FS SCH ×4 (06:13→20:32)
--- NOTE | 2018-03-21 06:20 | NUR ---
BLOOD SUGAR TEST 102 NOT COVERAGE PT WILL HAVE DIALYSIS TODAY
[2018-03-21 06:34] LABS: BASOPHILS # (AUTO) 0.1 K/uL (0.00-0.22); BASOPHILS % (AUTO) 1.4 % (0.0-2.0); EOSINOPHILS # (AUTO) 0.3 K/uL (0-0.4); EOSINOPHILS % (AUTO) 5.1 % (0.0-4.0); LYMPHOCYTES # (AUTO) 1.4 K/uL (2.0-11.5); LYMPHOCYTES % (AUTO) 23.6 % (20.5-51.1); MEAN CORPUSCULAR HEMOGLOBIN 27 pg (27-31); MEAN CORPUSCULAR HGB CONC 32 g/dL (33-37); MEAN CORPUSCULAR VOLUME 82.5 fL (80-94); MONOCYTES # (AUTO) 0.5 K/uL (0.8-1.0); MONOCYTES % (AUTO) 9.1 % (1.7-9.3); NEUTROPHILS # (AUTO) 3.6 K/uL (1.8-7.7); NEUTROPHILS % (AUTO) 60.8 % (42.2-75.2); PLATELET COUNT (AUTO) 163 K/uL (140-450); RED BLOOD CELL COUNT(AUTO) 2.43 MIL/uL (4.20-6.10); RED CELL DISTRIBUTION WIDTH 16.3 % (11.6-13.7); WHITE BLOOD COUNT (AUTO) 5.9 K/uL (4.8-10.8)
[2018-03-21 07:08] LABS: HEMATOCRIT 20.1 % (36-52); HEMOGLOBIN 6.5 g/dL (12.0-18.0)
--- NOTE | 2018-03-21 07:20 | NUR ---
REPORT RECEIVED FROM SALES PROJECT COORDINATOR NURSE, PT SLEEPING QUIETLY IN NAD, RESP EVEN UNLABORED ON RA, SKIN WARM DRY COLOR WNL, PT REMAINS ON BALLISTICS TEACHER, AROUSES EASILY, DENIES PAIN OR DISCOMFORT, POC REVIEWED, ALL SAFETY MEASURES IN PLACE, WILL CONTINUE TO MONITOR.
[2018-03-21 08:00] VITALS: BP 137/75
[2018-03-21] MEDS: CALCIUM ACETATE 667 MG TAB PO SCH ×3 (08:39→16:43)
[2018-03-21] MEDS: METOPROLOL 25 MG TAB PO SCH ×3 (08:39→20:26)
[2018-03-21] MEDS: VIT-B COMP/VIT-C/FOLIC ACID 1 TAB PO SCH (08:39)
[2018-03-21] MEDS: EPOETIN ALFA 10,000 UNITS/ML VIAL SUBQ SCH (08:40)
--- NOTE | 2018-03-21 08:57 | NUR ---
PT NPO FOR AVTAR AT 1330
--- NOTE | 2018-03-21 10:23 | NUR ---
DAIALYSIS AT BEDSIDE
--- NOTE | 2018-03-21 10:29 | NUR ---
P.T. NOTES Pt CHART REVIEWED FOR PT EVAL. NOT CLEARED PER RN FOR PT AT THIS TIME. Pt HAS LOW HGB & UNDERGOING HD AT THIS TIME, W/POSSIBLE TRANSFUSION LATER TODAY. WILL F/U TOMORROW FOR PT EVAL WHEN Pt IS SAFE AND AVAILABLE TO PARTICIPATE. NO PT EVAL DONE AT THIS TIME.
--- NOTE | 2018-03-21 10:35 | NUR ---
INFORMATION FOR VATAR GIVEN TO PT IN [place].
[2018-03-21 12:00] VITALS: BP 131/64
--- NOTE | 2018-03-21 12:01 | NUR ---
PT RECEIVING 2 UNITS PRBC GIVEN BY MASTER DIALYSIS NURSE.
--- NOTE | 2018-03-21 12:45 | NUR ---
DR AYALA AT BEDSIDE.
[2018-03-21] MEDS: INSULIN LISPRO SLIDING SCALE 100 UNITS/ML VIAL SUBQ PRN ×2 (12:56→20:30)
[2018-03-21] MEDS: CHLORHEXADINE GLUC 2% CLOTH TP SCH (13:00)
[2018-03-21] MEDS: MUPIROCIN 2% OINT 22 GM TUBE TP SCH (13:00)
--- NOTE | 2018-03-21 13:04 | NUR ---
DIALYSIS DONE, 2.5L TAKEN OUT PER DIALYSIS NURSE MASTER.
--- NOTE | 2018-03-21 14:27 | NUR ---
PHYSICAL THERAPY PAGED X2 REQUESTED BY DR AYALA, NO CALL BACK. WILL KEEP TRYING.
--- NOTE | 2018-03-21 14:53 | NUR ---
FAXED CONCURRENT REVIEW TO [facility] [phone] PHONE [facility]ANT[facility] [phone]
[2018-03-21] MEDS ORDERED: DEXTROSE 50% 50 ML SYR IVP PRN (15:45)
[2018-03-21 16:00] VITALS: BP 148/74
--- NOTE | 2018-03-21 17:29 | NUR ---
LEFT HAND IV NOT LONGER FLUSHING WELL, NEW PIV STARTED TO LEFT FA, PT ROBERTO WELL, PT SITTING UP IN BED IN NAD, WATCHING TV, DENIES ANY IMMEDIATE NEEDS, WILL CONTINUE TO MONITOR
--- NOTE | 2018-03-21 19:27 | NUR ---
REPORT GIVEN TO CHERRY DIPPER NURSE, PT IN STABLE CONDITION.
--- NOTE | 2018-03-21 19:30 | NUR ---
RECEIVED PT SLEEPING, EASILY AROUSABLE, VITAL SIGNS STABLE, BP SLIGHTLY ELEVATED, ASYMPTOMATIC, DENIES PAIN, NO SOB NOTED, LT IJ HD CATH IN PLACE WITH DRESSING DRY AND INTACT, SAFETY MEASURES IN PLACE FOR LEFT SIDED WEAKNESS, MAINTAINED ON CONTACT ISOLATION, CALL LIGHT WITHIN REACH.
[2018-03-21 20:00] VITALS: BP 148/76
--- NOTE | 2018-03-21 20:15 | NUR ---
AND DAUGHTER IN LAW JIMENEZ CAME IN TO VISIT, QUESTIONS ANSWERED, REQUESTING DR AYALA TO CALL FAMILY MEMBER JIMENEZ TO DISCUSS PLAN OF CARE AND DISCHARGE PLAN, WILL ENDORSE TO AM NURSE.
[2018-03-21] MEDS: cefTRIAXone 2,000 MG in DEXTROSE 5% 100 ML IV SCH (20:26)
--- NOTE | 2018-03-21 20:40 | NUR ---
BLOOD SUGAR CHECKED WITH 221 RESULT, COVERAGE GIVEN, SNACK PROVIDED, DUE MEDS ADMINISTERED, ROCEPHIN IVPB INFUSING WELL, ALL NEEDS ATTENDED.
--- NOTE | 2018-03-21 23:30 | NUR ---
PT SLEEPING, EASILY AROUSABLE, VITAL SIGNS STABLE, DENIES PAIN, CONTINUE TO MONITOR CLOSELY.
[2018-03-22] VITALS: BP 142/77
[2018-03-22 04:00] VITALS: BP 141/79
--- NOTE | 2018-03-22 04:00 | NUR ---
PT SLEEPING, EASILY AROUSABLE, VITAL SIGNS STABLE, DENIES PAIN, MONITORED CLOSELY.
[2018-03-22 06:59] LABS: BASOPHILS # (AUTO) 0.1 K/uL (0.00-0.22); BASOPHILS % (AUTO) 1.2 % (0.0-2.0); EOSINOPHILS # (AUTO) 0.2 K/uL (0-0.4); EOSINOPHILS % (AUTO) 3.5 % (0.0-4.0); HEMATOCRIT 27.3 % (36-52); HEMOGLOBIN 9.1 g/dL (12.0-18.0); LYMPHOCYTES # (AUTO) 1.4 K/uL (2.0-11.5); LYMPHOCYTES % (AUTO) 20.3 % (20.5-51.1); MEAN CORPUSCULAR HEMOGLOBIN 28 pg (27-31); MEAN CORPUSCULAR HGB CONC 33 g/dL (33-37); MEAN CORPUSCULAR VOLUME 82.5 fL (80-94); MONOCYTES # (AUTO) 0.5 K/uL (0.8-1.0); MONOCYTES % (AUTO) 7.3 % (1.7-9.3); NEUTROPHILS # (AUTO) 4.8 K/uL (1.8-7.7); NEUTROPHILS % (AUTO) 67.7 % (42.2-75.2); PLATELET COUNT (AUTO) 182 K/uL (140-450); RED BLOOD CELL COUNT(AUTO) 3.32 MIL/uL (4.20-6.10); RED CELL DISTRIBUTION WIDTH 15.8 % (11.6-13.7); WHITE BLOOD COUNT (AUTO) 7.1 K/uL (4.8-10.8)
--- NOTE | 2018-03-22 07:20 | NUR ---
ASSUMED CONTINUITY OF CARE. NO SIGNS AND SYMPTOMS OF ACUTE DISTRESS. INITIAL ASSESSMENT DONE. KEEP COMFORTABLE ON BED. EXPLAINED DIAGNOSIS, PLAN OF CARE, PAIN MANAGEMENT TEACHING, CONTACT ISOLATION PRECAUTION, USE OF CALL LIGHT/BED/TV/BATHROOM. FALL PRECAUTION APPLIED. CALL LIGHT WITHIN REACH.
--- NOTE | 2018-03-22 07:20 | NUR ---
PT SLEEPING, NO DISTRESS NOTED, REPORT GIVEN TO CAM VALVERDE FOR CONTINUITY OF CARE.
--- NOTE | 2018-03-22 07:21 | NUR ---
Patient's Plan of Care was discussed and reviewed with REDYE HAND: NICOLLE MEJIA
[2018-03-22 07:30] LABS: ALBUMIN 2.8 g/dL (3.4-5.0); ANION GAP 10.5 (8-16); CARBON DIOXIDE 26.5 mmol/L (21-32); TOTAL BILIRUBIN 0.4 mg/dL (0.0-1.0)
[2018-03-22 07:31] LABS: CREATININE 7.3 mg/dL (0.7-1.3)
[2018-03-22] MEDS: BLOOD GLUCOSE MONITORING 1 DEV DEV FS SCH ×5 (07:33→20:31)
[2018-03-22 08:00] VITALS: BP 147/77
[2018-03-22] MEDS: METOPROLOL 25 MG TAB PO SCH ×2 (08:38→20:34)
[2018-03-22] MEDS: VIT-B COMP/VIT-C/FOLIC ACID 1 TAB PO SCH (08:38)
[2018-03-22] MEDS: CALCIUM ACETATE 667 MG TAB PO SCH ×3 (08:38→16:47)
--- NOTE | 2018-03-22 08:40 | NUR ---
PHYSICAL THERAPIST CAME FOR PT. EVAL AND TREATMENT.
--- NOTE | 2018-03-22 09:31 | NUR ---
DR. DONAHUE -RECONCILING CLERK CAME AND SPOKE TO PT. AT BEDSIDE.
--- NOTE | 2018-03-22 10:43 | NUR ---
CALLED BRANDON SIGALA -HD NURSE AND INFORMED OF HD MD ORDER FOR TOMORROW 03/23/2018.
[2018-03-22] MEDS: INSULIN LISPRO SLIDING SCALE 100 UNITS/ML VIAL SUBQ PRN ×3 (11:20→20:33)
--- NOTE | 2018-03-22 11:52 | NUR ---
DR. AYALA CALLED PT. DAUGHTER -JIMENEZ AT AND EXPLAINED ABOUT PT. PLAN OF CARE.
[2018-03-22 12:00] VITALS: BP 152/84
--- NOTE | 2018-03-22 14:33 | NUR ---
RECEIVED ORDER TODAY FOR ARRANGEMENT/TRANSPORT FOR AVTAR. SPOKE WITH EYAL FROM [facility] HERE AND THEY CANNOT DO THE AVTAR TODAY. NEEDS TO HAVE A PART OF THE EQUIPMENT CHECKED. I CALLED [facility] AND SPOKE WITH NAHOMY ABOUT OP AVTAR AND SHE PUT ME TO [facility] FROM AND SHE REFERRED ME TO MICHAEL CHARGE NURSE FOR CARDIAC CATH. [phone]. SHE SAID SHE WASN'T SURE IF THEY COULD DO AN OUT PATIENT AVTAR AND SHE WOULD CONTACT [facility] AGAIN AND SHE WOULD CALL ME BACK THIS AFTERNOON. DR. Mary HE CALLED AND SAID TO SEE IF WE COULD SCHEDULE THE AVTAR AT [place] AND IF THEY COULD, HE WOULD CALL DR. DEUTSCH IF HE COULD SCHEDULE AND DO THE PROCEDURE TOMORROW. DR. Mary HE WANTED ME TO CHECK IF HE WAS APPROVED TO DO THE PROCEDURE AT [place]. I CALLED [place] [facility], AND WAS TOLD HE WAS ON STAFF, PROVISIONAL. I INFORMED DR. HE AND HE SAID HE WOULD CALL [place] [facility] [facility]. I CALLED [place] AND SPOKE WITH DINO MATTHEWS, TRANSMISSION SUPERINTENDENT, AND THEN EMMANUEL OR SCHEDULING NURSE. SHE ASKED ME TO FAX A FACE SHEET TO HER AT [phone]. I DID CHECK WITH LUISA AT [facility] AND SHE SAID [facility] WAS CONTRACTED WITH [facility]. SHE SAID THEY DON'T GIVE AUTH FOR OP PROCEDURE, IT GOES THROUGH HOSPITAL TO HOSPITAL
--- NOTE | 2018-03-22 15:48 | NUR ---
FAXED CONCURRENT REVIEW TO [facility] [phone]. I CALLED DR. Mary HE AND SAID NO ONE SCHEDULED THE AVTAR YET AT [facility]. Addendum: 03/22/18 at 1553 by Chelsie Vences NOTE, I ALSO INFORMED DR. HE THAT PATIENT IS DUE FOR HD TOMORROW.
--- NOTE | 2018-03-22 15:54 | NUR ---
I CALLED EMMANUEL FROM [facility], THE OR TRANSPORTATION PLANNING TECHNICIAN, AND GAVE HER THE PHONE NUMBER TO THE FLOOR IF THE AVTAR GETS SCHEDULED
[2018-03-22 16:00] VITALS: BP 151/71
--- NOTE | 2018-03-22 17:30 | NUR ---
SLEEPING IN COMFORTABLE POSITION. NO SOB, NOTED. CALL LIGHT WITHIN REACH.
--- NOTE | 2018-03-22 19:15 | NUR ---
BEDSIDE REPORT GIVEN TO CARMELA BAILEY. IN STABLE CONDITION.
--- NOTE | 2018-03-22 19:20 | NUR ---
RECEIVED PATIENT AWAKE LYING ON BED. FALL PRECAUTION IMPLEMENTED. DISCUSSED PLAN OF CARE. LEFT IJ IN PLACE. DIALYSIS NURSE AWARE ABOUT TOMORROW DIALYSIS 03/23/[address] PATIENT IN COMFORTABLE POSITION. CALL LIGHT WITHIN REACH.
[2018-03-22 20:00] VITALS: BP 163/77
[2018-03-22] MEDS: cefTRIAXone 2,000 MG in DEXTROSE 5% 100 ML IV SCH (20:01)
--- NOTE | 2018-03-22 21:00 | NUR ---
SCHEDULE MEDICATION TOLERATED WELL. V/S TAKEN AND RECORDED. NO S/S OF DISTRESS NOTED AT THIS TIME. ALL NEEDS ATTENDED. WILL CONTINUE TO MONITOR.
--- NOTE | 2018-03-22 23:00 | NUR ---
LEFT IJ DRESSING CHANGED. PATIENT TOLERATED WELL.
[2018-03-23] VITALS (12 sets, daily range): BP systolic 151–176; BP diastolic 66–86
--- NOTE | 2018-03-23 | NUR ---
V/S TAKEN AND RECORDED. REPOSITIONED PATIENT AND PLACE IN COMFORTABLE POSITION. NO S/S OF DISTRESS NOTED AT THIS TIME. FALL PRECAUTION APPLIED. CALL LIGHT WITHIN REACH. ALL NEEDS ATTENDED.
--- NOTE | 2018-03-23 02:35 | NUR ---
SEEN PATIENT ASLEEP ON BED BUT EASILY AROUSABLE. NO S/S OF DISTRESS NOTED. CALL LIGHT WITHIN REACH. WILL CONTINUE TO MONITOR.
--- NOTE | 2018-03-23 04:00 | NUR ---
V/S TAKEN AND RECORDED. AM CARE DONE. REPOSITIONED PATIENT AND PLACE IN COMFORTABLE POSITION. ALL NEEDS ATTENDED. NO S/S OF DISTRESS NOTED. CALL LIGHT WITHIN REACH.
[2018-03-23 06:56] LABS: BASOPHILS # (AUTO) 0.1 K/uL (0.00-0.22); BASOPHILS % (AUTO) 1.2 % (0.0-2.0); EOSINOPHILS # (AUTO) 0.3 K/uL (0-0.4); HEMATOCRIT 26.7 % (36-52); LYMPHOCYTES # (AUTO) 1.3 K/uL (2.0-11.5); LYMPHOCYTES % (AUTO) 17.5 % (20.5-51.1); MEAN CORPUSCULAR HEMOGLOBIN 28 pg (27-31); MEAN CORPUSCULAR HGB CONC 34 g/dL (33-37); MEAN CORPUSCULAR VOLUME 83.2 fL (80-94); MONOCYTES # (AUTO) 0.7 K/uL (0.8-1.0); MONOCYTES % (AUTO) 8.7 % (1.7-9.3); NEUTROPHILS # (AUTO) 5.2 K/uL (1.8-7.7); NEUTROPHILS % (AUTO) 68.6 % (42.2-75.2); PLATELET COUNT (AUTO) 187 K/uL (140-450); RED BLOOD CELL COUNT(AUTO) 3.21 MIL/uL (4.20-6.10); RED CELL DISTRIBUTION WIDTH 15.8 % (11.6-13.7); WHITE BLOOD COUNT (AUTO) 7.5 K/uL (4.8-10.8)
--- NOTE | 2018-03-23 07:15 | NUR ---
ENDORSEMENT GIVEN AT BEDSIDE TO AM SHIFT NURSE FOR CONTINUITY OF CARE. PATIENT IN STABLE CONDITION. CALL LIGHT WITHIN REACH.
[2018-03-23 07:16] LABS: ALBUMIN 2.6 g/dL (3.4-5.0); ANION GAP 14.9 (8-16); CARBON DIOXIDE 23.4 mmol/L (21-32); POTASSIUM 4.3 mmol/L (3.5-5.1); TOTAL BILIRUBIN 0.3 mg/dL (0.0-1.0)
--- NOTE | 2018-03-23 07:20 | NUR ---
RECEIVED PT REPORT FROM SUPERVISOR JOINERS RN AT BEDSIDE. PT IS AAOX3. IV NOTED TO LEFT FA, 22 G, FLUSHED, PATENT, INTACT, ASYMPTOMATIC. PT DENIES PAIN, NO S/S OF DISTRESS ON ROOM AIR. RIGHT ARM HAS SHUNT, BRUIT AND THRILL PRESENT. LT IJ HD CATH IN PLACE WITH DRESSING DRY AND INTACT. PT HAS SEVERE LEFT SIDED WEAKNESS, PT HAS HX OF STROKE, JUN 2017. MAINTAINED ON CONTACT ISOLATION, FALL SAFETY PRECAUTIONS IN PLACE. CALL LIGHT WITHIN REACH. WILL CONTINUE TO MONITOR.
[2018-03-23 07:23] LABS: CREATININE 9.3 mg/dL (0.7-1.3)
--- NOTE | 2018-03-23 08:38 | NUR ---
RECEIVED A CALL FROM MANNY, EMPLOYMENT INTERVIEWER FROM [facility]. SHE SAID THEY DO NOT DO OUT PATIENT AVTAR. I CALLED [facility] AND SPOKE WITH EMMANUEL FROM OUT PATIENT SURGERY. SHE SAID SHE STILL CAN DO THE AVTAR TODAY, BUT IT STILL HASN'T BEEN SCHEDULED BY DR. HE OR DR. DEUTSCH. I CALLED DR. Mary HE AND INFORMED HIM THAT [facility] DOES NOT DO OUT PATIENT AVTAR. HE SAID HE WOULD CALL [facility] AND DR. DEUTSCH ABOUT SCHEDULING THE AVTAR AT [facility].
[2018-03-23] MEDS: METOPROLOL 25 MG TAB PO SCH (09:00)
--- NOTE | 2018-03-23 09:20 | NUR ---
PT PULLED OUT HIS IV, STATING IT WAS CAUSING PAIN. HOWEVER, PT WAS SL. IV CATH TIP INTACT, NO BLEEDING NOTED. NEW IV 22G INSERTED ON LEFT FA. PT TOLERATED WELL.
--- NOTE | 2018-03-23 09:22 | NUR ---
STILL WAITING TO HEAR FROM [facility] ABOUT AVTAR. I DID PUT [facility] ON WILL CALL.
[2018-03-23] MEDS: VIT-B COMP/VIT-C/FOLIC ACID 1 TAB PO SCH (09:24)
[2018-03-23] MEDS: CALCIUM ACETATE 667 MG TAB PO SCH ×3 (09:24→17:31)
[2018-03-23] MEDS: EPOETIN ALFA 10,000 UNITS/ML VIAL SUBQ SCH (09:25)
--- NOTE | 2018-03-23 10:02 | NUR ---
CALLED [facility] AND SPOKE WITH EMMANUEL. SHE SAID SHE SPOKE WITH DR. DEUTSCH AND HE SAID HE AND DR. Mary HE WILL DO THE AVTAR ON MONDAY, NO TIME YET. I CALLED DR. HE AND CONFIRMED THE DATE. I CALLED DR. AYALA AND INFORMED HER. I CALLED YAMEL CHARGE NURSE AND INFORMED HER .
[2018-03-23] MEDS: BLOOD GLUCOSE MONITORING 1 DEV DEV FS SCH ×2 (11:11→16:36)
--- NOTE | 2018-03-23 11:30 | NUR ---
P.T. NOTES UNABLE TO SEE PATIENT FOR P.T. SERVICES DUE TO HE IS UNDERGOING HEMO DIALYSIS TREATMENT AT THIS TIME. PLAN: WE'LL CONTINUE P.T. PER PLAN OF CARE TOMORROW IF HE REMAINS IN THIS HOSPITAL.
--- NOTE | 2018-03-23 11:31 | NUR ---
RECEIVED A CALL FROM YAMEL PALACIO STATING DR. HE ASKED HER TO CALL ME TO SET UP THE AVTAR AT [place] FOR 2P.M. I CALLED [facility] AND SPOKE WITH EMMANUEL FROM OUT PATIENT SURGERY AND SHE SAID 2P.M. IS FINE. HAVE PICKUP ABOUT 12:30P.M. WILL INFORM DR. HE.
--- NOTE | 2018-03-23 11:42 | NUR ---
03/23/18 RD FOLLOW UP COMPLETED PLEASE REFER TO NUTRITION ASSESSMENT UNDER CARE ACTIVITY FOR ESTIMATED NUTRITIONAL NEEDS. 1. CONTINUE CARDIAC, CCHO 60 GM, RENAL DIET WITH NEPRO TID TOLERATED 2. RD PROVIDED NUTRITION EDUCATION ON RENAL AND DIABETES 3. RD TO FOLLOW-UP 5-7 DAYS, LOW RISK ERIK ARNETT, RD
--- NOTE | 2018-03-23 13:09 | NUR ---
FAXED CONCURRENT REVIEW TO [facility] [phone] PHONE VANITA [phone] I CALLED VANITA FROM [facility] AND INFORMED HER ABOUT THE AVTAR AND ORDER FOR SNF FOR PT AND IV ANTIBIOTICS. SHE SAID WHEN WE GET A SNF, AUTH FOR [facility]SP[facility] IS [id number]. SHE ALSO SAID THAT WE NEED TO GET A TRANSPORT FORM FROM [facility] FOR TRANSPORT FOR HD FILLED OUT.
--- NOTE | 2018-03-23 13:20 | NUR ---
SPOKE WITH DR HE OVER THE PHONE. NOTIFIED HIM ABOUT THE AVTAR COULD BE DONE BETWEEN [address] HE SAID HE WILL COME AT 1400.
[2018-03-23] MEDS: INSULIN LISPRO SLIDING SCALE 100 UNITS/ML VIAL SUBQ PRN (13:32)
--- NOTE | 2018-03-23 14:00 | NUR ---
DIALYSIS WAS FINISHED. 2 L REMOVED.
--- NOTE | 2018-03-23 14:20 | NUR ---
RECIEVED PT FROM NICOLE IN BED PLACE ON BED SIDE MONITOR. AND O2 AT 2L.NC/MIN.O2 SAT 99%. PT.IS LETHALGIC BUT FOLLOW THE COMMAND.
--- NOTE | 2018-03-23 14:25 | NUR ---
DR Quinton HE AT BEDSIDE ORDER TO GIVE FENTANYL 0.5MG AND VERSED IMG IVP ONCE. GIVEN ORDERED.
[2018-03-23] MEDS ORDERED: LIDOCAINE VISCOUS 2% 20 ML UDC PO SCH (14:30)
--- NOTE | 2018-03-23 14:40 | NUR ---
TRANSESOPHAGEL ECHOCARDIOGRAM BY DR. LE WITH BOWL TURNER. AT BEDSIDE.
--- NOTE | 2018-03-23 15:00 | NUR ---
THE PROCEDURE COMPLETED PT. CONDITION STABLE WITH HTN BP 163/76.
[2018-03-23] MEDS ORDERED: ROC2I IVP (15:07)
[2018-03-23] MEDS ORDERED: fentaNYL 0.05 MG/ML VIAL IVP SCH (15:30)
[2018-03-23] MEDS ORDERED: MIDAZOLAM 2 MG/2 ML VIAL IV SCH (15:30)
--- NOTE | 2018-03-23 15:39 | NUR ---
SPOKE WITH DR DONAHUE, OK TO DISCHARGE TODAY. PLACE PT BACK TO MON//MON SCHEDULE FOR DIALYSIS.
--- NOTE | 2018-03-23 16:46 | NUR ---
Key Account Director Note: Late note for earlier today, per case consultant Chelsie, spoke with patient regarding snf placement and she stated patient is in agreement with short term snf placement and does not have a snf preference. I faxed inquiry to [facility] (this snf is contracted with [facility]). Per Chiquita from [facility] , patient has been accepted and may go to room 15B at their facility today, accepting physician is . Chiquita is aware patient receives dialysis treatment at [facility] Tuesdays//Saturdays at 12:45pm. I faxed Transportation Request Form, fax number . Per Di from [facility] transportation , form was received and Primary Care transportation has been authorized for dialysis transportation from [facility] to [facility], authorization [id number], I provided this information to Chiquita from [facility]. Per Chiquita, they will provide wheelchair for dialysis transportation. I called and spoke with Di from [facility]ialysis , per Di patient receives dialysis treatment on Tuesdays//Saturdays at 12:45pm, she stated they don't have transportation information on his chart. Addendum: 03/23/18 at 1707 by Ciera Hooks SS I met with patient at bedside. Patient speaks English. Patient in agreement with transfer to [facility]. He requested I provide his Vickie and provide her with [facility]'s phone number and address. I called and spoke with Vickie and provided her with address and phone number of [facility].
[2018-03-23] MEDS: cefTRIAXone 2,000 MG in DEXTROSE 5% 100 ML IV SCH (17:36)
--- NOTE | 2018-03-23 18:10 | NUR ---
PT DISCHARGE PER MD ORDER. DISCHARGE INSTRUCTION WAS GIVEN WITH FURNACE CLERK REEMA [phone]. PT VERBALIZED UNDERSTANDING. PT LEFT IN STABLE CONDITION.
== END 2018-03-23 18:10 | DRG 466 ==
LOC: MED 15:10 → MTU 17:15
PROVIDERS: ADMIT Hospitalist; ATTEND Hospitalist
PROC: 05HN33Z Insertion of Infusion Device into Left Internal Jugular Vein, Percutaneous Approach (ICD-10-PCS; principal; 2018-03-16)
PROC: B544ZZA Ultrasonography of Left Jugular Veins, Guidance (ICD-10-PCS; 2018-03-16)
PROC: 5A1D70Z Performance of Urinary Filtration, Intermittent, Less than 6 Hours Per Day (ICD-10-PCS; 2018-03-17)
PROC: 5A1D70Z Performance of Urinary Filtration, Intermittent, Less than 6 Hours Per Day (ICD-10-PCS; 2018-03-19)
PROC: 30233N1 Transfusion of Nonautologous Red Blood Cells into Peripheral Vein, Percutaneous Approach (ICD-10-PCS; 2018-03-21)
PROC: 5A1D70Z Performance of Urinary Filtration, Intermittent, Less than 6 Hours Per Day (ICD-10-PCS; 2018-03-21)
PROC: 5A1D70Z Performance of Urinary Filtration, Intermittent, Less than 6 Hours Per Day (ICD-10-PCS; 2018-03-23)
DX: T82.7XXA Infection and inflammatory reaction due to other cardiac and vascular devices, implants and grafts, initial encounter (principal); I13.11 Hypertensive heart and chronic kidney disease without heart failure, with stage 5 chronic kidney disease, or end stage renal disease; A41.9 Sepsis, unspecified organism; E11.21 Type 2 diabetes mellitus with diabetic nephropathy; E11.40 Type 2 diabetes mellitus with diabetic neuropathy, unspecified; N18.6 End stage renal disease; E11.65 Type 2 diabetes mellitus with hyperglycemia; E11.22 Type 2 diabetes mellitus with diabetic chronic kidney disease; E87.5 Hyperkalemia; I69.954 Hemiplegia and hemiparesis following unspecified cerebrovascular disease affecting left non-dominant side; D63.8 Anemia in other chronic diseases classified elsewhere; E78.5 Hyperlipidemia, unspecified; N39.0 Urinary tract infection, site not specified; Y83.8 Other surgical procedures as the cause of abnormal reaction of the patient, or of later complication, without mention of misadventure at the time of the procedure; B95.62 Methicillin resistant Staphylococcus aureus infection as the cause of diseases classified elsewhere; Z99.2 Dependence on renal dialysis; Z68.1 Body mass index [BMI] 19.9 or less, adult; Z68.31 Body mass index [BMI] 31.0-31.9, adult; Z79.01 Long term (current) use of anticoagulants; Z79.82 Long term (current) use of aspirin; Z79.899 Other long term (current) drug therapy; Z74.01 Bed confinement status
CPT/HCPCS: 36415; 71045; 80053; 80202; 81001; 82948; 83605; 83880; 84100; 84484; 85018; 85025; 85610; 85730; 86704; 86706; 86708; 86709; 86803; 86886; 86900; 86901; 86920; 87040; 87081; 87086; 87186; 87340; 90732; 90935; 93005; 93313; 96365; 96375; 97530; 99291; C1758; J0692; J0696; J0885; J1644; J1815; J1956; J2250; J2270; J2543; J3010; J3370; J7030; J7060; P9016; Q0092

== ENCOUNTER 2019-09-24 12:52 | Inpatient (IN) | payer OTHER, SELFPAY ==
[~2019-09-24] VITALS: Ht 165.1 cm; Wt 50.8 kg
[~2019-09-24 12:52] MED LIST: AMLO5TAB PO; ASPI-1822 PO; CALC0.5S6 PO; CARV12.5 PO; CLOP75TA26 PO; FURO-570 PO; HYDR100T79 PO; LINA5TAB PO; LIP80 PO; LOSA100T1 PO; MULT-574 PO; PANT40EC PO; PHO667 PO; ROC2I IVP
--- NOTE | 2019-09-24 12:52 | NUR ---
Patient BIBA ALS, transferred to bed 1. RN evaluating patient at bedside.
[2019-09-24 12:53] VITALS: BP 84/53
--- NOTE | 2019-09-24 13:05 | NUR ---
DIALYSIS ACCES LUE JOSEPHE ADOREA
--- NOTE | 2019-09-24 13:05 | NUR ---
COVID 19 PROTOCOL FOLLOWED PER HOSPITAL POLICY VSS TAKEN ON THE AMBULANCE PT TAKEN TO ROOM WITH FACE MASK ON PT PLACED ON ISOLATION ROOM COVID 19 PURPLE SIGN AT BEDSIDE CHECK-IN LIST AT BEDSIDE RN IN FULL PPE
--- NOTE | 2019-09-24 13:05 | NUR ---
PER PT GETS DIALYSIS MONDAY/MONDAY/MONDAY DID NOT STARTED DIALYSIS TODAY, DUE TO CONDITION AND BEING SENT TO ER
--- NOTE | 2019-09-24 13:05 | NUR ---
54 Y/O M C/C LLE PAIN/WAIST PAIN 10/10 PAIN, X 3 WEEKS. PER PT ALSO COMPLAINTS OF SOB X 1 WEEK. PT BIBA FROM DIALYSIS, SENT TO ER FROM DIALYSIS DUE TO LLE PAIN. UPON ASSESSMENT PT HYPOTENSIVE, LETHARGIC, PLACED ON NC 6LMP. 98% NC. PT A/OX4, ITALIAN SPEAKING. DENIES N/V/D. RX,HX -- SEE CHART
--- NOTE | 2019-09-24 13:15 | NUR ---
ERMD AT BEDSIDE
[2019-09-24] MEDS ORDERED: VANCOMYCIN 1,000 MG in DEXTROSE 5% 250 ML IV ONE (13:20)
[2019-09-24] MEDS ORDERED: PIPERACILLIN/TAZOBACTAM 3.375 GM in DEXT 5% MINI-BAG PLUS 50 ML IV ONE (13:20)
[2019-09-24] MEDS: NACL 0.9% 1,000 ML IV SCH ×2 (13:25→21:29)
[2019-09-24] MEDS ORDERED: PIPERACILLIN/TAZOBACTAM 3.375 GM VIAL IV ONE (13:29)
--- NOTE | 2019-09-24 13:30 | NUR ---
PT RESTING IN BED, SIDE RAIL X2
[2019-09-24] MEDS ORDERED: VANCOMYCIN 1,000 MG VIAL ONE (13:43)
--- NOTE | 2019-09-24 14:00 | NUR ---
LAB / RT AT BEDSIDE
--- NOTE | 2019-09-24 14:02 | NUR ---
FLU SWAB COVID SWAB COLLECTED GIVEN TO LAB
[2019-09-24 14:22] LABS: BASOPHILS % (AUTO) 0.4 % (0.0-2.0); EOSINOPHILS % (AUTO) 0.6 % (0.0-4.0); LYMPHOCYTES # (AUTO) 0.7 K/uL (2.0-11.5); LYMPHOCYTES % (AUTO) 10.2 % (20.5-51.1); MEAN CORPUSCULAR HEMOGLOBIN 30 pg (27-31); MEAN CORPUSCULAR HGB CONC 33 g/dL (33-37); MEAN CORPUSCULAR VOLUME 89.8 fL (80-94); MONOCYTES # (AUTO) 0.4 K/uL (0.8-1.0); MONOCYTES % (AUTO) 5.4 % (1.7-9.3); NEUTROPHILS # (AUTO) 5.6 K/uL (1.8-7.7); NEUTROPHILS % (AUTO) 83.4 % (42.2-75.2); PLATELET COUNT (AUTO) 197 K/uL (140-450); RED BLOOD CELL COUNT(AUTO) 1.82 MIL/uL (4.20-6.10); RED CELL DISTRIBUTION WIDTH 14.9 % (11.6-13.7); WHITE BLOOD COUNT (AUTO) 6.7 K/uL (4.8-10.8)
[2019-09-24 14:33] LABS: HEMATOCRIT 16.3 % (36-52); HEMOGLOBIN 5.4 g/dL (12.0-18.0)
[2019-09-24] MEDS ORDERED: fentaNYL 0.05 MG/ML VIAL IVP ONE (14:35)
--- NOTE | 2019-09-24 14:38 | NUR ---
XRAY AT BEDSIDE.
[2019-09-24] MEDS ORDERED: NACL 0.9% 1,000 ML IV ONE (14:40)
[2019-09-24 14:41] LABS: ALBUMIN 1.5 g/dL (3.4-5.0); ANION GAP 27.7 (8-16); CARBON DIOXIDE 21.6 mmol/L (21-32); POTASSIUM 4.3 mmol/L (3.5-5.1); TOTAL BILIRUBIN 0.5 mg/dL (0.0-1.0)
--- NOTE | 2019-09-24 14:45 | NUR ---
IV 20GA RT A/C DONE, 2ND SET OF BLOOD SENT TO LAB, PIA BRYANT WITH US. 2ND IVF/PAIN MEDS GIVEN-NADR AT THIS TIME. PAIN POST MEDS 08/19.
[2019-09-24 15:07] LABS: PROTHROMBIN TIME 15.8 secs (10.8-13.4)
--- NOTE | 2019-09-24 15:21 | NUR ---
CDC COVID 19 PAPER GIVEN TO LAB
[2019-09-24] MEDS ORDERED: INSULIN LISPRO SLIDING SCALE 100 UNITS/ML VIAL SUBQ PRN (15:45)
[2019-09-24] MEDS ORDERED: ONDANSETRON 4 MG/2 ML VIAL IVP PRN (15:45)
[2019-09-24] MEDS ORDERED: DEXTROSE 50% 50 ML SYR IVP PRN (15:45)
--- NOTE | 2019-09-24 16:00 | NUR ---
Patient appears to be resting in bed. Vital Signs within normal limits. Respirations even and unlabored.
[2019-09-24] MEDS: BLOOD GLUCOSE MONITORING 1 DEV DEV FS SCH ×2 (16:30→21:00)
--- NOTE | 2019-09-24 18:14 | NUR ---
PT ARRIVED FROM ER IN [facility], REPORT RECIEVED FROM GEOPHYSICS TEACHER, PT AWAKE ALERT, PLACED ON MONITOR, HR 70 SINUS RHYTHM, RESP EVEN UNLABORED ON RA, SKIN WARM DRY COLOR WNL, PT WITH RIGHT FEMORAL JANIS CATH OPEN TO AIR, LEFT AV SHUNT, RIGHT AV SHUNT, 18G IN R FA, FLUSHES WITH RESISTANCE, PT C/O PAIN, SWELLING NOTED AT SITE, PT WITH RIGHT BKA, LEFT HEEL WOUND, DIALYSIS NURSE SANDRA AT BEDSIDE.
--- NOTE | 2019-09-24 18:15 | NUR ---
20G IV REMOVED DUE TO INFILTRATION, CHARGE NURSE NOTIFIED.
--- NOTE | 2019-09-24 18:20 | NUR ---
BLOOD TRANSFUSION PAPER WORK GIVEN TO PRIMARY ICU NURSE HAM PALACIO. SIGNED BY DIPTI.
--- NOTE | 2019-09-24 18:25 | NUR ---
Patient will be admitted to care of [facility]. Admited to ICU. Will go to room 4. Belongings list completed. Report to JAVIER PALACIO; HAM PALACIO.
[2019-09-24] MEDS: MIDODRINE 5 MG TAB PO SCH ×3 (18:35→21:30)
--- NOTE | 2019-09-24 18:45 | NUR ---
PT SIGNED CONSENT FOR DIALYSIS AND BLOOD TRANSFUSION.
[2019-09-24 18:46] VITALS: BP 100/73
--- NOTE | 2019-09-24 19:00 | NUR ---
2 UNITS OF PRBC VERIFIED BY PIA LOYOLA AND DIALYSIS NURSE SANDRA, TO BE TRANSFUSED DURING DIALYSIS.
--- NOTE | 2019-09-24 19:13 | NUR ---
PT REFUSES MIDODRINE, PT IGNORES AND REFUSES TO ANSWER QUESTIONS, STATES "SHUT UP" TO NURSE, PT WITH INTERMITTENT COUGHS, REPEATEDLY REMOVES MASK WHEN ASKED TO KEEP THE MASK ON.
--- NOTE | 2019-09-24 19:25 | NUR ---
[facility]IS[facility] PIA SUN CALLED FOR UPDATE, PER DINO, PT RECEIVED FLU VACCINE APR 2019, PNA VACC MAY 2019. PT'S IS KEVIN [phone], DAUGHTER YENNY [phone]
[2019-09-24 20:00] VITALS: BP 118/48
[2019-09-24] MEDS ORDERED: cefTRIAXone 1,000 MG VIAL ONE (21:04)
--- NOTE | 2019-09-24 21:05 | NUR ---
PT ANOx4, NORTHERN IRISH SPEAKING, SPEAKS AND UNDERSTANDS SOME TAJIK. PT VERY UNCOOPERATIVE, KEEPS YELLING AT NURSE AND SWATTING AT NURSE DURING ASSESSMENT. ON NASAL CANNULA BUT PATIENT KEEPS YANKING EQUIPMENT OFF. SMALL COUGH NOTED, INTERMITTENT, PRODUCTIVE WITH SMALL AMOUNT OF CLEAR SECRETIONS. SOME RHONCHI HEARD. S1S2, SR ON MONITOR. SKIN WARM AND DRY, AFEBRILE. NOT INTACT, LEFT HEEL HAS DRY WOUND/DIABETIC ULCER/PRESSURE ULCER. BLACK. RIGHT HAND, MIDDLE FINGER AMPUTATION. RIGHT BKA. LEFT SIDED WEAKNESS, PATIENT HAS AV SHUNT TO LEFT ARM , THRILL PALPATED. NO BLOOD DRAW/IV TO LEFT UPPER EXTREMITY. RIGHT FA PERIPHERAL IV 18G, DOES NOT FLUSH. SALINE EMANUEL. RIGHT HAND 22G, FLUSHED WITHOUT SYMPTOMS, PATENT. ABDOMEN SOFT AND NONTENDER, ACTIVE BOWEL SOUNDS. RIGHT FEMORAL JANIS CATH IN PLACE. CONTACT PRECAUTIONS IN PLACE FOR MRSA HX, AND DROPLET FOR RULE OUT COVID AND POSITIVE INFLUENZA A. UPDATED ON TREATMENT, AND ORIENTED TO CALL LIGHT. SIDERAILS UP x3, HOB 30 DEGREES, SAFETY MEASURES IN PLACE, WILL CONTINUE TO MONITOR.
[2019-09-24] MEDS: ALBUMIN HUMAN 25% 100 ML IV SCH (21:30)
[2019-09-24 22:00] VITALS: BP 104/75
--- NOTE | 2019-09-24 22:30 | NUR ---
PT IS STILL REFUSING TREATMENT, WILL NOT ALLOW NURSE TO CHECK BLOOD SUGAR OR ADMINISTER PO MEDS. PATIENT IS YELLING/CURSING AT NURSE, PATIENT IS SWATTING AT NURSE WITH RIGHT HAND. ENCOURAGED PATIENT TO ALLOW TREATMENT AND PROVIDED EDUCATION ON DELAY OF CARE/TREATMENT, PATIENT IS SHOUTING " I DONT CARE, GET OUT, LEAVE ME ALONE". CALLED DAUGHTER YENNY ON SPEAKER TO ALLOW DAUGHTER TO CALM DOWN PATIENT. PT STILL PUSHING RN AWAY. CALLED [facility], RECOMMENDED BY DAUGHTER SINCE PATIENT ONLY LISTENS TO SON. PT STILL REFUSES TREATMENT. PER FAMILY REQUEST, MAKE PATIENT GO TO SLEEP TO ALLOW FOR TREATMENT. REPORTED TO FAMILY, IF PATIENT ALLOWS ME TO PUSH IV MEDS THEN I CAN ATTEMPT TO CONTINUE TREATMENT. BP STABLE, HR SR ON MONITOR. PT KEEPS YANKING OFF PULSE OX AND NASAL CANNULA. DESATS TO 89%.
--- NOTE | 2019-09-24 23:00 | NUR ---
PT CALMED DOWN AND APOLOGIZED TO RN, FOLLOWING COMMANDS NOW AND ALLOWING TREATMENT. PATIENT TOOK PO MEDS FOR BP, TOLERATED WELL. ASSISTED PATIENT WITH DRINKING SOME WATER, REFUSED FOOD AT THIS TIME.
[2019-09-24] MEDS: LORazepam 2 MG/ML VIAL IVP PRN (23:02)
[2019-09-25] VITALS (10 sets, daily range): BP systolic 91–123; BP diastolic 41–77
--- NOTE | 2019-09-25 00:05 | NUR ---
PT CALM, RESTING WELL, EYES CLOSED, WITHDRAWS TO LIGHT PAIN AND OPENS EYES SPONTANEOUSLY AND TO VOICE. FOLLOWING COMMANDS. ASSISTED WITH TURNING AND REPOSITIONING. LEFT SIDED WEAKNESS NOTED. SKIN WARM AND DRY,AFEBRILE. BOLUS COMPLETE. RIGHT ARM PERIPHERAL IV REMOVED, INFILTRATED, UNABLE TO FLUSH. PT TOLERATED WELL. NO COMPLAINTS AT THIS TIME, ALL NEEDS MET.
--- NOTE | 2019-09-25 02:48 | NUR ---
RESTING WELL, ALL VITALS STABLE, PATIENT HAS NASAL CANNULA IN PLACE, 3LPM, ADJUSTED LEGS FOR COMFORT, R BKA, SIDERAILS UP x3, BED LOCKED AND IN LOW POSITION, CALL LIGHT WITHIN REACH, SAFETY MEASURES IN PLACE. WILL CONTINUE TO MONITOR.
[2019-09-25] MEDS: ALBUMIN HUMAN 25% 100 ML IV SCH ×2 (04:05→12:41)
--- NOTE | 2019-09-25 04:45 | NUR ---
LABS DRAWN PATIENT TOLERATED FAIRLY. IV ALBUMIN ADMINISTERED. PT DENIES PAIN. REPOSITIONED TO OFFLOAD PRESSURE AREAS. REINFORCED NASAL CANNULA AND PULSE OX. SAFETY MEASURES IN PLACE. PROVIDED EDUCATION ON MEDICATION INDICATIONS AND SIDE EFFECTS, NEEDS REINFORCEMENT, PATIENT SLIGHTLY AGITATED, KEEPS PULLING BLANKET OVER HEAD AND FACE.
--- NOTE | 2019-09-25 06:30 | NUR ---
ATTEMPTED TO CHECK BLOOD SUGAR, GLUCOMETER IS NOT WORKING PROPERLY. WENT TO LAB TO RETRIEVE NEW GLUCOMETER, UNABLE TO PROVIDE NEW GLUCOMETER. PENDING BLOOD SUGAR RESULTS FROM A.M LAB DRAW. Addendum: 09/25/19 at 0656 by Keira Huynh RN CHARGE NURSE MADE AWARE
[2019-09-25 06:45] LABS: BASOPHILS # (AUTO) 0.1 K/uL (0.00-0.22); BASOPHILS % (AUTO) 0.6 % (0.0-2.0); EOSINOPHILS # (AUTO) 0.1 K/uL (0-0.4); EOSINOPHILS % (AUTO) 0.6 % (0.0-4.0); HEMOGLOBIN 11.5 g/dL (12.0-18.0); LYMPHOCYTES # (AUTO) 1.2 K/uL (2.0-11.5); LYMPHOCYTES % (AUTO) 10.9 % (20.5-51.1); MEAN CORPUSCULAR HEMOGLOBIN 29 pg (27-31); MEAN CORPUSCULAR HGB CONC 33 g/dL (33-37); MEAN CORPUSCULAR VOLUME 86.4 fL (80-94); MONOCYTES # (AUTO) 0.7 K/uL (0.8-1.0); NEUTROPHILS # (AUTO) 9.2 K/uL (1.8-7.7); NEUTROPHILS % (AUTO) 81.9 % (42.2-75.2); PLATELET COUNT (AUTO) 304 K/uL (140-450); RED BLOOD CELL COUNT(AUTO) 4.05 MIL/uL (4.20-6.10); RED CELL DISTRIBUTION WIDTH 18.4 % (11.6-13.7); WHITE BLOOD COUNT (AUTO) 11.2 K/uL (4.8-10.8)
[2019-09-25 07:29] LABS: ALBUMIN 2.7 g/dL (3.4-5.0); ANION GAP 19.7 (8-16); CARBON DIOXIDE 23.2 mmol/L (21-32); POTASSIUM 3.9 mmol/L (3.5-5.1); TOTAL BILIRUBIN 0.8 mg/dL (0.0-1.0)
[2019-09-25] MEDS: BLOOD GLUCOSE MONITORING 1 DEV DEV FS SCH ×4 (07:30→20:35)
--- NOTE | 2019-09-25 07:30 | NUR ---
RECEIVED CHANGE OF SHIFT REPORT FROM LUBRICATION SERVICER NURSE. PT IS AWAKE, AROUSABLE TO VOICE. PT IS KAZAKH SPEAKING. UNABLE TO FULLY ASSESS A&O STATUS DUE TO LANGUAGE BARRIER. PT HAS REACTION WHEN SPEAKING NAME. PT DOES NOT TO APPEAR IN IMMEDIATE DISTRESS. LUNG SOUNDS ARE CLEAR BUT DIMINISHED THROUGHOUT. EYES PERRL 3MM. S1S2 HEARD. +2 RADIAL PULSES. CAP REFILL <3 SECONDS. PT HAS RIGHT HAND 20G PIV THAT IS ASYMPTOMATIC, PATENT AND INTACT. NO FLUIDS RUNNING AT THIS TIME. PT HAS RIGHT MIDDLE FINGER AMPUTATION. PT HAS RIGHT BKA. PT HAS LEFT SIDED WEAKNESS. NO BM. NO VOIDS. PT HAS POOR APPETITE. VSS. PT WAS ON NC 3LPM ACCORDING TO LUBRICATION SERVICER NURSE, BUT HAS TAKEN OUT NC. SPO2 ABOVE 96%. WILL KEEP OFF AT THIS TIME. BED IS LOCKED IN LOW POSITION, HOB 30 DEGREES. CALL LIGHT WITHIN REACH. WILL CONTINUE TO MONITOR.
[2019-09-25 07:41] LABS: CREATININE 4.1 mg/dL (0.6-1.3)
--- NOTE | 2019-09-25 08:00 | NUR ---
ATTEMPTED TO CHECK BLOOD SUGAR. GLUCOMETER NOT WORKING PROPER. UNABLE TO ASSESS. CHARGE NURSE MADE AWARE. BLOOD SUGAR FROM MORNING LABS ARE 121. NO COVERAGE NEEDED AT THIS TIME
--- NOTE | 2019-09-25 10:00 | NUR ---
SPOKE TO RD. RECOMMENDED TO SWITCH PT TO RENAL DIET.
--- NOTE | 2019-09-25 10:18 | NUR ---
DISCHARGE PLANNING: THIS IS A 54 Y/O MALE PATIENT FROM HOME, WHO WAS BIBA FROM HD CENTER DUE TO LEFT LOWER EXTREMITY PAIN. PAST MEDICAL HISTORY INCLUDE HTN, CIRRHOSIS, ESRD ON AF-S-FY-SAT-[facility] (DR. JIMENEZ) AND DIABETES. INITIAL DIAGNOSIS OF ANEMIA. CURRENT LABS INCLUDE WBC 6.7, H/H 5.4/16.3 ON ADMISSION AND TODAY 11.5/35.0 AFTER 2 UNITS PRBC, NA/K 136/3.9, BUN/CREA 42/4.1 AND ALB 2.7. POSITIVE FOR INF A. COVID 10 PENDING. CXR ON ADMISSION SHOWED PLEURAL EFFUSION OF LIKELY MODERATE SIZE AND POSSIBLE LEFT BASILAR ATELECTASIS OR CONSOLIDATION. NEPHRO CONSULT IN PLACE. MRSA NARES PENDING. BLOOD C/S PENDING-WITH HISTORY OF MRSA BLOOD ON VANCO 500MG ON EVERY HD. ON ALBUMIN Q8H AND ROCEPHIN. DC PLAN BACK TO HOME ONCE STABLE. Addendum: 09/27/19 at 1311 by Lachelle Drummond CM DC PLANNING: PT HAS A DC ORDER , SPOKE WITH DR CHAN REGARDING THE INFLUENZA A + AND PT HAS NO ORDER FOR TAMIFLU, DR CHAN STATED HE HAD NO SYMPTOMS AND WAS NOT INDICATED FOR TAMIFLU DUE TO PATIENT HAVING NO SYMPTOMS AND MRSA COLONIZATION WAS TREATED WITH BED BATH PROTOCOL. FAXED TO [facility] WILL MAKE ACCOMMODATIONS FOR INSOLATION FOR INFLUENZA . CM TO FOLLOW. Addendum: 09/27/19 at 1329 by Lachelle Drummond CM DC PLANNING RECEIVED AN AUTHORIZATION FROM [facility] FOR [facility] [id number] FOR TRANSPORT [id number] STILL WAITING FROM [facility] FOR BED . Addendum: 09/27/19 at 1431 by Demetrius CORNEJO ABIGAIL spoke with Delmar from [facility] [phone] and faxed face sheet, transportation authorization #[id number], and nursing station number. ABIGAIL arranged transportation to be after 6PM to room 101B. TIMMY Larose provided auth #[id number] to Yojana from [facility].
[2019-09-25] MEDS: CALCIUM ACETATE 667 MG TAB PO SCH ×2 (11:40→16:58)
[2019-09-25] MEDS: MIDODRINE 5 MG TAB PO SCH ×2 (12:36→18:38)
[2019-09-25] MEDS: LORazepam 2 MG/ML VIAL IVP PRN (12:40)
--- NOTE | 2019-09-25 13:05 | NUR ---
APPLIED BETADINE DRESSING AND HEEL PADDING UPON RECOMMENDATION OF WOUND CARE NURSE. ADMINISTERED AFTERNOON MEDICATIONS AND PRN ATIVAN 1MG FOR INCREASING AGITATION.
--- NOTE | 2019-09-25 14:00 | NUR ---
TRANSFERRED PT TO ROOM 115. GAVE REPORT TO MST NURSE TO ENSURE CONTINUITY OF CARE. PT IS STABLE AT THIS TIME.
--- NOTE | 2019-09-25 14:04 | NUR ---
09/25/19 RD INITIAL ASSESSMENT COMPLETED PLEASE REFER TO NUTRITION ASSESSMENT UNDER CARE ACTIVITY FOR ESTIMATED NUTRITIONAL NEEDS. 1. RECOMMEND CCHO 60GM AND RENAL DIET TOLERATED 2. RECOMMEND NEPRO BID 3. CONTINUE NEPHRO-ROSA FOR WOUND HEALING 4. RD TO FOLLOW-UP 2-3 DAYS, HIGH RISK ERIK ARNETT, MALISSA
--- NOTE | 2019-09-25 14:05 | NUR ---
RECEIVED FROM ICU NURSE. PT IS AOX3. MACANESE SPEAKING. NO C/O PAIN, NO SOB, AFEBRILE, RESPIRATIONS EVEN AND UNLABORED. ON O2 2LPM NC. O2SAT 93%. ON RENAL DIET. IV SITE RIGHT HAND 20G. PATENT AND INTACT. PT HAS RIGHT MIDDLE FINGER AMPUTATION. PT HAS RIGHT BKA. PT HAS LEFT SIDED WEAKNESS. BED IS LOCKED IN LOW POSITION, HOB 30 DEGREES. CALL LIGHT WITHIN REACH. WILL CONTINUE TO MONITOR.
--- NOTE | 2019-09-25 15:15 | NUR ---
CALLED DIALYSIS NURSE BRANDON. SCHEDULED HEMODIALYSIS FOR TOMORROW.
[2019-09-25] MEDS: ATORVASTATIN 80 MG TAB PO SCH (16:57)
--- NOTE | 2019-09-25 17:00 | NUR ---
DUE PM MEDS GIVEN ORDERED TOLERATED WELL
--- NOTE | 2019-09-25 17:30 | NUR ---
ENDORSEMENT GIVEN TO DA SHIFT NURSE IGLESIA FOR CONTINUITY OF CARE
--- NOTE | 2019-09-25 18:00 | NUR ---
RECEIVED REPORT FROM NURSE MAC FOR CONTINUITY OF CARE.
--- NOTE | 2019-09-25 18:41 | NUR ---
MEDICATIONS DUE GIVEN CHECK VITAL SIGNS PRIOR TO MEDICATION. BP; 104/73. WILL CONTINUE TO MONITOR.
--- NOTE | 2019-09-25 19:15 | NUR ---
ENDORSED PT TO NIGHT NURSE.PT IS STABLE.
--- NOTE | 2019-09-25 19:25 | NUR ---
RECEIVED FROM AM RN IN BED AWAKE AND ABLE TO VERBALIZE IN TURKISH WITH US. STATING HE WANTS TO GO HOME ALREADY . DENIES PAIN AT THIS TIME. FOR HEMODIALYSIS TOMORROW. DX. OF ANEMIA. HGB AT THIS TIME 11.5 PER AM RN. CALL LIGHT WITH IN REACH.
--- NOTE | 2019-09-25 21:36 | NUR ---
PT. SLEEPING AT THIS TIME. ABLE TO VERBALIZE SIMPLE NEEDS IN URUGUAYAN. ON 02 AT 3LPM/NC AND WITH 02 SAT AT 94 % AT THIS TIME. TELEMETRY MONITORING. BLOOD SUGAR CHECK 130 MG/DL. NO INSULIN COVERAGE . CALL LIGHT WITH IN REACH.
--- NOTE | 2019-09-25 23:39 | NUR ---
PT. VITAL SIGNS TAKEN. WOKE UP EASILY. PROVIDED WITH ADDITIONAL PILLOW FOR BACK SUPPORT REQUESTED AND WARM BLANKET PROVIDED RT COMPLAINED TOO COLD. PT. ALWAYS SHOUTS OUT LOUD WHEN ASKING FOR SOMETHING. REFUSED TO USE CALL LIGHT. REMINDED THAT THERE ARE OTHER PT.S SLEEPING AND IT IS NIGHT TIME. SAYS"OK,OK" BUT STILL SHOUTS OUT LOUD FOR ANY REQUESTS . AFEBRILE. ON AT 3LPM/NC.
--- NOTE | 2019-09-26 | NUR ---
PT. PROVIDED WITH DM SNACK. ABLE TO DRINK WELL AND EAT A LITTLE OF HIS SNACK. ENCOURAGED TO GO BACK TO SLEEP. LOTION TO HIS LEFT THIGH APPLIED REQUESTED. PT. SHOUTING HE NEEDS IT. HOB UP 30 DEGREES REQUESTED. 02 SAT 96 % WITH 3LPM/NC.
[2019-09-26] MEDS: LORazepam 2 MG/ML VIAL IVP PRN ×2 (00:56→23:13)
--- NOTE | 2019-09-26 01:13 | NUR ---
PT. BEEN RESTLESS AND KEEP SHOUTING. ASKED WHY AND STATED HE CAN NOT SLEEP. PT. ASKED IF I CAN GIVE HIM MEDICINE. MEDICATED WITH ATIVAN 1 MG. IVP ORDERED AND REQUESTED BY PT. MADE ME HOB DOWN A LITTLE BIT FROM 30 DEGREES UP TO LESSER. STATED HE WILL SLEEP NOW. MADE SURE [address] KEPT COMFORTABLE.
--- NOTE | 2019-09-26 02:58 | NUR ---
SLEEPING. TURNED TO SIDES BY CNAS Q2H WITH PILLOW SUPPORT TO PRESSURE AREAS. JANIS CATHETER TO RIGHT FEMORAL AND AV SHUNT TO LEFT ARM + BRUIT. FOR HD TOMORROW. ABLE TO VERBALIZE IN ESTONIAN AND PORTUGUESE SIMPLE NEEDS.
[2019-09-26 03:51] VITALS: BP 96/56
[2019-09-26] MEDS ORDERED: VANCOMYCIN PER PHARMACY MC PRN (05:15)
--- NOTE | 2019-09-26 05:15 | NUR ---
INFORMED MD TONG PUBLIC AFFAIRS DIRECTOR FOR MD CHAN THAT PT.,S BLOOD CULTURE + GRAM COCCI. WITH ORDERS FOR VANCO PER PHARMACY TO DOSE. CHARGE NURSE AWARE.
[2019-09-26] MEDS: BLOOD GLUCOSE MONITORING 1 DEV DEV FS SCH ×4 (05:27→20:06)
[2019-09-26] MEDS: MIDODRINE 5 MG TAB PO SCH ×3 (06:00→19:00)
[2019-09-26] MEDS: PANTOPRAZOLE 40 MG TABEC PO SCH (06:00)
--- NOTE | 2019-09-26 06:57 | NUR ---
PT. AWAKE AT THIS TIME. SLEPT IN AND OUT THIS SHIFT. WAKES UP A LOT OF TIMES. SHOUTING IN LOUD VOICE WHEN AWAKE . ALWAYS STATING HE WANTS TO GO HOME NOW. EXPLAINED THAT HE HAS HEMODIALYSIS TODAY AND TO WAIT . TELEMETRY MONITORING.
[2019-09-26 07:08] LABS: BASOPHILS # (AUTO) 0.1 K/uL (0.00-0.22); BASOPHILS % (AUTO) 0.8 % (0.0-2.0); EOSINOPHILS # (AUTO) 0.1 K/uL (0-0.4); EOSINOPHILS % (AUTO) 0.5 % (0.0-4.0); HEMATOCRIT 32.3 % (36-52); HEMOGLOBIN 10.8 g/dL (12.0-18.0); LYMPHOCYTES # (AUTO) 1.6 K/uL (2.0-11.5); LYMPHOCYTES % (AUTO) 11.5 % (20.5-51.1); MEAN CORPUSCULAR HEMOGLOBIN 28 pg (27-31); MEAN CORPUSCULAR HGB CONC 33 g/dL (33-37); MEAN CORPUSCULAR VOLUME 84.6 fL (80-94); MONOCYTES # (AUTO) 0.9 K/uL (0.8-1.0); MONOCYTES % (AUTO) 6.5 % (1.7-9.3); NEUTROPHILS # (AUTO) 11.4 K/uL (1.8-7.7); NEUTROPHILS % (AUTO) 80.7 % (42.2-75.2); PLATELET COUNT (AUTO) 385 K/uL (140-450); RED BLOOD CELL COUNT(AUTO) 3.82 MIL/uL (4.20-6.10); RED CELL DISTRIBUTION WIDTH 18.4 % (11.6-13.7); WHITE BLOOD COUNT (AUTO) 14.1 K/uL (4.8-10.8)
--- NOTE | 2019-09-26 07:15 | NUR ---
RECEIVE REPORT FROM NIGHT NURSE FOR CONTINUITY OF CARE, PT IS STABLE, PT AAOX3, PT IS STABLE, PT ON 3L NASAL CANNULA O2, PT HAS RIGHT BKA, PT HAS RIGHT FEMORAL JANIS CATH, PT HAS LEFT ARM AV SHUNT, PT HAS RH 22G SALINE LOCK, PT HAS LEFT FEEL GANGRENE DI, INTRODUCE SELF, UPDATED WHITEBOARD, CALL LIGHT WITHIN REACH, ALL NEEDS MET AT THIS TIME, WILL CONTINUE TO MONITOR.
--- NOTE | 2019-09-26 07:18 | NUR ---
ENDORSED TO AM RN FOR CONTINUITY OF CARE. EYES CLOSED BUT ANSWERS QUESTIONS ASKED FROM AM RN . NO RESTLESSNESS.
[2019-09-26 07:21] LABS: ALBUMIN 2.7 g/dL (3.4-5.0); ANION GAP 21.3 (8-16); CARBON DIOXIDE 19.9 mmol/L (21-32); POTASSIUM 4.2 mmol/L (3.5-5.1); TOTAL BILIRUBIN 0.8 mg/dL (0.0-1.0)
[2019-09-26 08:00] VITALS: BP 123/79
[2019-09-26 08:23] LABS: CREATININE 5.2 mg/dL (0.6-1.3)
[2019-09-26] MEDS: CALCIUM ACETATE 667 MG TAB PO SCH ×3 (08:46→17:51)
[2019-09-26] MEDS: VIT-B COMP/VIT-C/FOLIC ACID 1 TAB PO SCH (08:46)
[2019-09-26] MEDS: CALCITRIOL 0.25 MCG CAPLF PO SCH (08:46)
--- NOTE | 2019-09-26 08:51 | NUR ---
ADMINISTERED SCHEDULED MEDICATION, EDUCATION GIVEN, PT VERBALIZED UNDERSTANDING, PT TOLERATED MEDICATION WELL, PT IS STABLE, CALL LIGHT WITHIN REACH.
--- NOTE | 2019-09-26 11:00 | NUR ---
PT RESTING IN BED, NO SIGNS OF DISTRESS NOTED, CALL LIGHT WITHIN REACH.
[2019-09-26 12:00] VITALS: BP 108/74
--- NOTE | 2019-09-26 13:10 | NUR ---
PT RECEIVING DIALYSIS, PT STABLE, DIALYSIS NURSE AT BEDSIDE, CALL LIGHT WITHIN REACH.
[2019-09-26 16:00] VITALS: BP 128/73
[2019-09-26] MEDS: ATORVASTATIN 80 MG TAB PO SCH (17:51)
[2019-09-26] MEDS: MUPIROCIN CA NASAL 2% 1GM TUBE NS SCH (17:51)
[2019-09-26] MEDS: CHLORHEXADINE GLUC 2% CLOTH TP SCH (17:51)
--- NOTE | 2019-09-26 17:54 | NUR ---
ADMINISTERED SCHEDULED MEDICATION, EDUCATION GIVEN, PT VERBALIZED UNDERSTANDING, PT TOLERATED MEDICATION WELL, PT IS STABLE, CALL LIGHT WITHIN REACH.
--- NOTE | 2019-09-26 19:24 | NUR ---
RECEIVE BEDSIDE REPORT FROM DAY RN FOR CONTINUITY OF CARE, PT IS STABLE, PT AAOX2-3, TUVALUAN SPEAKING ONLY. PT IS STABLE, PT ON 3L NASAL CANNULA O2, PT HAS RIGHT BKA, PT HAS RIGHT FEMORAL JANIS CATH, PT HAS LEFT ARM AV SHUNT, PT HAS R HAND 22G IV ABX INFUSING PER ORDERS. PT HAS LEFT FEET GANGRENE DI, DRESSING IS C/D/I. INTRODUCE SELF, UPDATED WHITEBOARD, CALL LIGHT WITHIN REACH. ON CONTACT AND DROPLET PRECAUTION. ALL NEEDS MET AT THIS TIME, WILL CONTINUE TO MONITOR.
--- NOTE | 2019-09-26 19:28 | NUR ---
ADMINISTERED SCHEDULED MEDICATION, PT EDUCATION GIVEN, PT TOLERATED WELL, PT IS STABLE. GAVE REPORT TO NIGHT NURSE FOR CONTINUITY OF CARE, PT IS STABLE.
[2019-09-26] MEDS ORDERED: VANCOMYCIN 750 MG in DEXTROSE 5% 250 ML IV SCH (19:30)
[2019-09-26 20:00] VITALS: BP 113/46
[2019-09-26] MEDS: MORPHINE SULFATE 2 MG/ML SYR IVP PRN (20:08)
--- NOTE | 2019-09-26 20:08 | NUR ---
VSS. BLOOD SUGAR 190 PATIENT RECEIVED INSULIN APPROX 60 MIN AGO WILL HOLD COVERAGE AND RECHECK IN AM. ADMINISTERED MORPHINE FOR LEG PAIN 01/19. CALL LIGHT IS WITHIN REACH. WILL CONTINUE TO MONITOR.
--- NOTE | 2019-09-26 21:15 | NUR ---
NEW IV ON R HAND 22G IV ABX INFUSING PER ORDERS.
--- NOTE | 2019-09-26 21:50 | NUR ---
PATIENT IS RESTING COMFORTABLY IN BED SPEAKING WITH DAUGHTER ON THE PHONE. NO S/S OF DISTRESS. CALL LIGHT IS WITHIN REACH. WILL CONTINUE TO MONITOR.
--- NOTE | 2019-09-26 23:13 | NUR ---
PATIENT IS RESTLESS AND SHOUTING FOR NURSE. ASKED HOW I CAN HELP HIM REQUESTED TO BE REPOSITION. TURNED PATIENT AND FIXED PILLOW ON LEG. PT REMAINS SHOUTING AND RESTLESS ADMINISTERED PRN ATIVAN IVP. VSS. CALL LIGHT IS WITHIN REACH. ALL SAFETY MEASURES ARE IN PLACE. WILL CONTINUE TO MONITOR.
[2019-09-27] VITALS: BP 143/88
--- NOTE | 2019-09-27 00:10 | NUR ---
PATIENT IS RESTING COMFORTABLY IN BED WITH EYES CLOSED. VSS. NO S/S OF DISTRESS. ALL SAFETY MEASURES ARE IN PLACE. CALL LIGHT IS WITHIN REACH. WILL CONTINUE TO MONITOR.
--- NOTE | 2019-09-27 01:48 | NUR ---
PT WAS SCREAMING WENT INTO ROOM. RESPIRATIONS ARE EQUAL AND UNLABORED REMAINS ON 3L O2 VIA NC. GAVE PT WATER PER REQUEST. REPOSITION FOR COMFORT. ALL NEEDS MET AT THIS TIME. CALL LIGHT IS WITHIN REACH.
[2019-09-27 04:00] VITALS: BP 86/62
[2019-09-27] MEDS: MIDODRINE 5 MG TAB PO SCH ×3 (04:43→18:26)
--- NOTE | 2019-09-27 04:43 | NUR ---
ADMINISTERED PROMATINE 10MG FOR B/P: 86/62 HR 90. WILL CONTINUE TO MONITOR.
[2019-09-27] MEDS: PANTOPRAZOLE 40 MG TABEC PO SCH (05:32)
--- NOTE | 2019-09-27 05:40 | NUR ---
RECHECKED PT'S B/P 98/69 HR 85. ADMINISTERED ROBERT MEDICATIONS. BLOOD SUGAR 117 NO COVERAGE NEEDED. CHANGED DRESSING ON R FEMORAL JANIS D/T PT SCRATCHING LEG AND REMOVED DRESSING. USED CLEAN TECHNIQUE TO REMOVE OLD DRESSING AND STERIL TECHNIQUE TO CLEAN SITE AND APPLY DRESSING. DRESSING SIGN WITH DATE,TIME AND INITIAL. EDUCATED PATIENT TO NOT REMOVE DRESSING OR TOUCH JANIS D/T RISK OF INFECTION PT VERBALIZED UNDERSTANDING.
[2019-09-27] MEDS: BLOOD GLUCOSE MONITORING 1 DEV DEV FS SCH ×3 (05:43→16:35)
[2019-09-27 05:44] VITALS: BP 98/69
--- NOTE | 2019-09-27 07:04 | NUR ---
PT IS SLEEPING COMFORTABLY IN BED WITH EYES CLOSED. CALL LIGHT IS WITHIN REACH. PT STABLE. WILL ENDORSE TO DAY RN.
--- NOTE | 2019-09-27 07:05 | NUR ---
REPORT GIVEN BY NIGHT NURSE. PATIENT IN STABLE CONDITION. PATIENT AWAKE, ALERT AND ORIENTED X3. PLANS OF CARE DISCUSSED. IV INTACT AND PATENT TO RIGHT HAND SALINE LOCK. O2 ON @ 3L VIA NC. NO DISTRESS NOTED. CALL LIGHT WITHIN REACH. SAFETY MEASURES IN PLACE.
[2019-09-27 07:39] LABS: BASOPHILS # (AUTO) 0.1 K/uL (0.00-0.22); BASOPHILS % (AUTO) 0.5 % (0.0-2.0); EOSINOPHILS % (AUTO) 0.1 % (0.0-4.0); HEMATOCRIT 33.1 % (36-52); HEMOGLOBIN 10.8 g/dL (12.0-18.0); LYMPHOCYTES # (AUTO) 1.5 K/uL (2.0-11.5); LYMPHOCYTES % (AUTO) 9.9 % (20.5-51.1); MEAN CORPUSCULAR HEMOGLOBIN 28 pg (27-31); MEAN CORPUSCULAR HGB CONC 33 g/dL (33-37); MEAN CORPUSCULAR VOLUME 86.3 fL (80-94); MONOCYTES % (AUTO) 6.7 % (1.7-9.3); NEUTROPHILS # (AUTO) 12.9 K/uL (1.8-7.7); NEUTROPHILS % (AUTO) 82.8 % (42.2-75.2); PLATELET COUNT (AUTO) 281 K/uL (140-450); RED BLOOD CELL COUNT(AUTO) 3.83 MIL/uL (4.20-6.10); RED CELL DISTRIBUTION WIDTH 17.8 % (11.6-13.7); WHITE BLOOD COUNT (AUTO) 15.6 K/uL (4.8-10.8)
[2019-09-27 07:56] LABS: ANION GAP 16.7 (8-16); CARBON DIOXIDE 24.2 mmol/L (21-32); POTASSIUM 3.9 mmol/L (3.5-5.1)
[2019-09-27 07:57] LABS: ALBUMIN 2.7 g/dL (3.4-5.0); TOTAL BILIRUBIN 0.9 mg/dL (0.0-1.0)
[2019-09-27 08:00] VITALS: BP 98/68
[2019-09-27 08:26] LABS: CREATININE 4.8 mg/dL (0.6-1.3)
[2019-09-27] MEDS: CALCIUM ACETATE 667 MG TAB PO SCH ×3 (08:41→17:28)
[2019-09-27] MEDS: CALCITRIOL 0.25 MCG CAPLF PO SCH (08:41)
[2019-09-27] MEDS: VIT-B COMP/VIT-C/FOLIC ACID 1 TAB PO SCH (08:41)
--- NOTE | 2019-09-27 09:30 | NUR ---
AM MEDICATIONS GIVEN. NO DISTRESS NOTED. SAFETY MEASURES IN PLACE. CALL LIGHT WITHIN REACH.
[2019-09-27] MEDS: LORazepam 2 MG/ML VIAL IVP PRN (11:07)
--- NOTE | 2019-09-27 11:30 | NUR ---
BG CHECKED. 150 NO COVERAGE NOTED. PATIENT AWAKE, ALERT ORIENTED X3. NO DISTRESS NOTED.
[2019-09-27 12:00] VITALS: BP 104/61
[2019-09-27] MEDS: MUPIROCIN CA NASAL 2% 1GM TUBE NS SCH (12:10)
[2019-09-27] MEDS: CHLORHEXADINE GLUC 2% CLOTH TP SCH (12:11)
--- NOTE | 2019-09-27 14:41 | NUR ---
RECEIVED CALL FROM CASE MANAGEMENT PATIENT MANUSCRIPT EDITOR FOR DISCHARGE AROUND 6PM VIA [facility].
[2019-09-27 16:00] VITALS: BP 104/67
--- NOTE | 2019-09-27 16:45 | NUR ---
REPORT GIVEN TO PIA JUNIOR FROM [facility] FOR CONTINUITY OF CARE. PATIENT TO BE PICKED UP BY [facility] AT 6PM PER STRAW HAT BRIM RAISER OPERATOR
--- NOTE | 2019-09-27 17:00 | NUR ---
PATIENT IS IN STABLE CONDITION. NO DISTRESS NOTED.
[2019-09-27] MEDS: ATORVASTATIN 80 MG TAB PO SCH (17:27)
[2019-09-27] MEDS: MORPHINE SULFATE 2 MG/ML SYR IVP PRN (18:27)
--- NOTE | 2019-09-27 19:00 | NUR ---
PT IN STABLE CONDITION. PATIENT AWAITING TRANSPORTATION FROM [facility]. WILL ENDORSE TO NIGHT NURSE FOR CONTINUITY OF CARE.
--- NOTE | 2019-09-27 20:01 | NUR ---
PT. PICKED UP BY TRANSPORT TO TRANSFER BACK TO SNF HE RESIDES. ALL BELONGINGS WITH PT. NOTHING LEFT BEHIND. PT. AWAKE AND ALERT AND ABLE TO VERBALIZE NEEDS WELL. NO RESTLESSNESS. ABLE TO VERBALIZE WITH TRANSPORT PERSONNEL A ND ME. CHARGE NURSE AWARE AND OTOLARYNGOLOGIST AWARE OF DISCHARGE.
== END 2019-09-27 19:40 | DRG 663 ==
LOC: MED 12:52 → EEVIPCON 12:52 → MIC 15:56 → MTU 09-25 14:00
PROVIDERS: ADMIT Internal Medicine Pulmonary Disease; ATTEND Internal Medicine Pulmonary Disease
PROC: 30233N1 Transfusion of Nonautologous Red Blood Cells into Peripheral Vein, Percutaneous Approach (ICD-10-PCS; principal; 2019-09-24)
PROC: 5A1D70Z Performance of Urinary Filtration, Intermittent, Less than 6 Hours Per Day (ICD-10-PCS; 2019-09-24)
PROC: 5A1D70Z Performance of Urinary Filtration, Intermittent, Less than 6 Hours Per Day (ICD-10-PCS; 2019-09-26)
DX: D50.9 Iron deficiency anemia, unspecified (principal); E43 Unspecified severe protein-calorie malnutrition; I13.2 Hypertensive heart and chronic kidney disease with heart failure and with stage 5 chronic kidney disease, or end stage renal disease; E11.22 Type 2 diabetes mellitus with diabetic chronic kidney disease; E11.51 Type 2 diabetes mellitus with diabetic peripheral angiopathy without gangrene; E11.621 Type 2 diabetes mellitus with foot ulcer; D62 Acute posthemorrhagic anemia; I50.32 Chronic diastolic (congestive) heart failure; L97.429 Non-pressure chronic ulcer of left heel and midfoot with unspecified severity; N18.6 End stage renal disease; Z20.828 Contact with and (suspected) exposure to other viral communicable diseases; K74.60 Unspecified cirrhosis of liver; J11.1 Influenza due to unidentified influenza virus with other respiratory manifestations; Z99.2 Dependence on renal dialysis; Z68.1 Body mass index [BMI] 19.9 or less, adult; Z79.899 Other long term (current) drug therapy; Z86.73 Personal history of transient ischemic attack (TIA), and cerebral infarction without residual deficits; Z89.511 Acquired absence of right leg below knee; Z86.14 Personal history of Methicillin resistant Staphylococcus aureus infection
CPT/HCPCS: 36415; 36600; 71045; 80053; 80202; 82553; 82728; 82803; 82948; 83605; 83880; 84484; 85025; 85610; 85730; 86886; 86900; 86901; 86920; 87040; 87081; 87186; 87804; 93005; 93970; 96365; 96367; 99291; J0696; J1644; J1815; J2060; J2270; J2543; J3010; J3370; J7030; J7060; P9016; P9046; Q0092

== ENCOUNTER 2020-05-24 13:48 | Inpatient (IN) | payer OTHER, SELFPAY ==
[~2020-05-24] VITALS: Ht 165.1 cm; Wt 68.0 kg
[~2020-05-24 13:48] MED LIST changes: +CALC667C12 PO; -PHO667 PO; -ROC2I IVP
--- NOTE | 2020-05-24 14:16 | NUR ---
PATIENT BIBA TO ER BED 6 AT THIS TIME.
[2020-05-24 14:32] VITALS: BP 154/72
--- NOTE | 2020-05-24 14:38 | NUR ---
55 YEAR OLD MALE BIBA FROM [facility] FOR TUNNEL DIALYSIS CATHETER BLEEDING X 2 HOURS. PER EMS PT LOST 100ML OF BLOOD IN ROUTE, BLEEDING CONTROLLED BY GAUZE. UPON ARRIVAL ERMD AT BEDSIDE, REPLACED GAUZE. BLEEDING REMAINS CONTROLLED. PT ALERT AND AWAKE, BREATHING EVEN AND UNLABORED, SKIN WARM AND DRY. BED IN LOWEST POSITION, LOCKED, BED RAIL UPX1. PMH - HTN, DM2, CKD, SCHIZOPHRENIA ALLERGIES - NKA
[2020-05-24 15:11] LABS: BASOPHILS # (AUTO) 0.1 K/uL (0.00-0.22); BASOPHILS % (AUTO) 1.3 % (0.0-2.0); EOSINOPHILS # (AUTO) 0.2 K/uL (0-0.4); EOSINOPHILS % (AUTO) 3.1 % (0.0-4.0); HEMATOCRIT 21.4 % (36-52); HEMOGLOBIN 7.4 g/dL (12.0-18.0); LYMPHOCYTES % (AUTO) 12.2 % (20.5-51.1); MEAN CORPUSCULAR HEMOGLOBIN 32 pg (27-31); MEAN CORPUSCULAR HGB CONC 35 g/dL (33-37); MEAN CORPUSCULAR VOLUME 92.6 fL (80-94); MONOCYTES # (AUTO) 0.4 K/uL (0.8-1.0); MONOCYTES % (AUTO) 5.1 % (1.7-9.3); NEUTROPHILS # (AUTO) 6.2 K/uL (1.8-7.7); NEUTROPHILS % (AUTO) 78.3 % (42.2-75.2); PLATELET COUNT (AUTO) 154 K/uL (140-450); RED BLOOD CELL COUNT(AUTO) 2.31 MIL/uL (4.20-6.10); WHITE BLOOD COUNT (AUTO) 7.9 K/uL (4.8-10.8)
[2020-05-24 15:41] LABS: CARBON DIOXIDE 28.2 mmol/L (21-32); POTASSIUM 5.2 mmol/L (3.5-5.1)
--- NOTE | 2020-05-24 16:00 | NUR ---
PT RESTING WITH EYES CLOSED, BREATHING EVEN AND UNLABORED. NO DISTRESS NOTED. PT REMAINS ON MONITOR, VS STABLE
[2020-05-24 16:06] LABS: PROTHROMBIN TIME 11.4 secs (10.8-13.4)
--- NOTE | 2020-05-24 18:13 | NUR ---
PT RESTING WITH EYES CLOSED, BREATHING EVEN AND UNLABORED. NO DISTRESS NOTED. PT REMAINS ON MONITOR, VS STABLE
--- NOTE | 2020-05-24 19:30 | NUR ---
REPORT RECEIVED FROM PIA SALAS
[2020-05-24 19:32] LABS: HEMATOCRIT 20.4 % (36-52)
--- NOTE | 2020-05-24 19:32 | NUR ---
REPORT GIVEN TO KADEN PALACIO, TRANSFER OF CARE AT THIS TIME.
--- NOTE | 2020-05-24 19:45 | NUR ---
RESTING IN BED WITH EYES CLOSED. RESPIRATIONS REGULAR AND UNLABORED. SMALL AMOUNT RED DRAINAGE NOTED TO RIGHT GROIN DRESSING. BLEEDING CONTROLLED
--- NOTE | 2020-05-24 21:10 | NUR ---
C/O BEING COLD. WARM BLANKETS GIVEN
[2020-05-24] MEDS ORDERED: ONDANSETRON 4 MG/2 ML VIAL IVP PRN (21:55)
--- NOTE | 2020-05-24 23:15 | NUR ---
PT HAS VERY POOR VENOUS ACCESS. 20G SL ESTABLISHED LLE
[2020-05-25] MEDS ORDERED: diphenhydrAMINE 50 MG/ML VIAL IVP ONE (04:20)
--- NOTE | 2020-05-25 04:20 | NUR ---
AWAKE AND CALLING OUT, RESTLESS. POSITIONED FOR COMFORT AND MEDICATED ORDERED
--- NOTE | 2020-05-25 07:01 | NUR ---
COVID SWABS SENT TO LAB
--- NOTE | 2020-05-25 07:29 | NUR ---
REPORT RECEIVED FROM KADEN PALACIO, TRANSFER OF CARE AT THIS TIME.
--- NOTE | 2020-05-25 08:04 | NUR ---
Patient refused morning blood draw. Will follow up with patient.
--- NOTE | 2020-05-25 08:10 | NUR ---
PT ALERT AND AWAKE, BREATHING EVEN AND UNLABORED. NO DISTRESS NOTED. PT RIGHT CATHETER SITE GAUZE SATURATED WITH BLOOD. SITE CLEANED AND DRESSED WITH NEW GAUZE. NO ACTIVE BLEEDING.
[2020-05-25] MEDS: ATORVASTATIN 80 MG TAB PO SCH (09:29)
[2020-05-25] MEDS: LOSARTAN 50 MG TAB PO SCH ×2 (09:29)
[2020-05-25] MEDS: FUROSEMIDE 40 MG TAB PO SCH ×2 (09:30)
[2020-05-25] MEDS: carvediloL 12.5 MG TAB PO SCH ×2 (09:31)
[2020-05-25] MEDS: amLODIPine 5 MG TAB PO SCH (09:31)
[2020-05-25] MEDS: CALCIUM ACETATE 667 MG TAB PO SCH ×3 (09:32→17:01)
--- NOTE | 2020-05-25 10:09 | NUR ---
NOVEL COVID SWAB SENT TO LAB
--- NOTE | 2020-05-25 10:30 | NUR ---
PT ALERT AND AWAKE, BREATHING EVEN AND UNLABORED. NO DISTRESS NOTED.
--- NOTE | 2020-05-25 11:37 | NUR ---
SOCIAL WORK NOTE: Patient's Orientation Unable To Assess Information Provided By YENNY AVITIA - DAUGHTER Comments SW WAS UNABLE TO MEET PATIENT AT BEDSIDE TO COMPLETE ASSESSMENT. SW COMPLETED ASSESSMENT WITH PATIENT'S DAUGHTER. Electrical Software Engineer, Realtionship and Phone Number YENNY AVITIA DAUGHTER [phone] KEVIN AVITIA [phone] Healthcare Power of Svp Chief Marketing Officer No Does Patient Have a POLST No Identifying Problems No Social Work Triggers Is A Social Work Consult Needed No Mandate Report Filed No Explanation Of Identifying Problems PATIENT IS A 55-YEAR-OLD FEMALE ADMITTED FOR ANEMIA AND BLEEDING FRMO DIALYSIS. PATIENT HAS PMHX OF CEREBROVASCULAR ACCIDE, DIABETES, AND ESRD. PATIENT'S DAUGHTER REPORTED NO HISTORY OF SUBSTANCE ABUSE OR MENTAL HEALTH. Admitted From Jail Facility [facility] [phone] Pre-Admission Level Of Functioning Status Total Care Level Of Functioning Comment DAUGHTER REPORTED TOTAL ASSISTANCE. Prior Resources/Services Used In Last 12 Months SNF [facility] Prior DME No Prior DME Used Dialysis Hemodialysis Name And Phone Number of Dialysis Facility [facility] Time 1230 Patient Had Caregiver No Home Support No Caregiver Issues Financial Issues No Known Financial Issue Referral To The Financial Counselor Needed No Factors/Needs No D/C Needs Identified Explanation And Or Other Factors Affecting/Possible DC Needs FAMILY PREFERS PATIENT TO RETURN TO [facility]. Pt/Rep Participated In Discharge Plan Yes Patient/Family Agress With Discharge Plan Yes Discharge Plan Comments TENTATIVE DISCHARGE PLAN IS FOR PATIENT TO RETURN HOME. DC Plan Status Initiated
--- NOTE | 2020-05-25 12:30 | NUR ---
PT ALERT AND AWAKE, BREATHING EVEN AND UNLABORED. NO DISTRESS NOTED.
--- NOTE | 2020-05-25 13:00 | NUR ---
PT RESTING WITH EYES CLOSED, BREATHING EVEN AND UNLABORED. NO DISTRESS NOTED.
--- NOTE | 2020-05-25 14:31 | NUR ---
Patient transferred to [facility] for further care. RN evaluating aptient at bedside.
[2020-05-25] MEDS ORDERED: DESMOPRESSIN 4 MCG/ML AMP IV SCH (14:50)
--- NOTE | 2020-05-25 15:00 | NUR ---
PT RESTING WITH EYES CLOSED, BREATHING EVEN AND UNLABORED. NO DISTRESS NOTED.
--- NOTE | 2020-05-25 16:33 | NUR ---
DISCHARGE PLANNING: THIS IS A 55 Y/O MALE PATIENT FROM [facility], WAS BIBA DUE TO ACUTE ONSET OF BLEEDING AT HIS CATHETER SITE. PAST MEDICAL HISTORY INCLUDE CVA, DM, ESRD, RIGHT BKA, LEFT AKA, LEFT 4TH DIGIT PARTIAL AMPUTATION. INITIAL DIAGNOSIS OF ANEMIA, BLEEDING FROM DIALYSIS CATHETER. CURRENT LABS INCLUDE WBC 7.9, H/H 7.0/20.4, NA/K 131/5.2, BUN/CREA 63/5.0. RAPID COVID NEGATIVE, PCR PENDING. ON ROOM AIR, O2 SAT 100%. NEPHRO CONSULT IN PLACE - HD TODAY. DC PLAN BACK TO [facility] ONCE STABLE. Addendum: 05/29/20 at 1522 by Marietta Hannah CM DC LINUX NETWORK SYSTEMS ADMINISTRATOR: SPOKE TO MIKALA AT [facility] REGARDING PATIENTS DISCHARGE, SHE STATED THAT THEY DO NOT HAVE ANY AVAILABLE BEDS AT THIS TIME TO TAKE PATIENT BACK. SHE ASKED THAT WE TRY TO SEND THE PATIENTS REFERRAL TO OTHER SNFS. Addendum: 05/29/20 at 1538 by Lachelle Drummond RN dc planning: PT HAS A DC ORDER TO GO BACK TO [facility] THEY HAVE NO BED AND TRYING TO SEND HIM TO ONE OF THEIR SISTER FACILITIES AND WILL CALL BACK. CM TO FOLLOW Addendum: 06/02/20 at 1146 by Marietta Hannah CM DC LINUX NETWORK SYSTEMS ADMINISTRATOR: APPOINTMENT SCHEDULED FOR PATIENT WITH VASCULRA SURGEON DR. FRASER [phone]. Monday AT 9:30 AM. AUTH PROVIDED FROM MARCIA AT [facility] [phone]
--- NOTE | 2020-05-25 17:01 | NUR ---
PT RESTING WITH EYES CLOSED, BREATHING EVEN AND UNLABORED. NO DISTRESS NOTED.
--- NOTE | 2020-05-25 17:04 | NUR ---
CALLED PHARMACY REGARDING DESMOPRESSIN, STATE THEY ARE TRYING TO CONTACT DR RENNER BECAUSE MEDICATION WAS NOT PLACED PROPERLY.
[2020-05-25] MEDS ORDERED: NACL 0.9% IV SCH (17:10)
[2020-05-25] MEDS ORDERED: DESMOPRESSIN IV SCH (17:10)
--- NOTE | 2020-05-25 18:06 | NUR ---
ATTEMPTING TO CONTACT DR FRANKLIN REGARDING INABILITY TO OBTAIN IV ACCESS, FACILITY STATES DR. HAMILTON WILL GIVE CALL BACK. ALSO WILL NOTIFY REGARDING CONSISTENT SLOW BLEEDING, EVEN FROM SMALL WOUND OPENING ON CHEST
--- NOTE | 2020-05-25 18:30 | NUR ---
CHARGE NURSE ANABELLE SPOKE WITH ATTENDING REGARDING PT STATUS
[2020-05-25] MEDS ORDERED: VANCOMYCIN PER PHARMACY MC PRN (19:05)
--- NOTE | 2020-05-25 19:25 | NUR ---
Patient will be admitted to care of Dr Morataya. Admited to [place] [id number]. Will go to room 112A. Belongings list completed. Report to Gisel. Nurse aware that pt still needs demopressin medication
[2020-05-25 20:00] VITALS: BP 129/75
--- NOTE | 2020-05-25 20:30 | NUR ---
RECEIVED PT FROM ER.PLACED ON BED ORIENTED TO ROOM.CALL LIGHT EXPLAINED AND IN REACH.HAS BLEEDING FROM SITE OF HD.CATH..HAS ORDER FOR HD.NURSE IS HERE . HAS SKIN TEAR ON LT.CHEST WALL TOO.NO IV LINE.LT SIDE CONTRACTED. HAS OLD LT AV SHUNT.PT IS AWAKE,ALERT BUT CONFUSED. RESP.UNLABORED IN RA.WILL CONT.MONITORING.
[2020-05-26] VITALS: BP 135/55
--- NOTE | 2020-05-26 03:56 | NUR ---
HD DONE 900ML TOOK OUT.PT REFUSED HIS SCHEDULED MED AFTER HD..WILL CONT.MONITORING.
[2020-05-26 04:00] VITALS: BP 124/67
--- NOTE | 2020-05-26 06:14 | NUR ---
SLEPT WELL.TOOK PICTURES FROM WOUNDS.PT WAS NOT COOPERATIVE. WOUND AND FNS CONSULT WILL ORDER.NO DISTRESS NOTED NOW.
--- NOTE | 2020-05-26 07:35 | NUR ---
RECEIVED PATIENT FROM NIGHT NURSE. PATIENT IN BED AWAKE AND ALERT. DRESSING OVER INGUINAL HD SITE SATURATED. NEW DRESSING APPLIED AND REINFORCED. PATIENT ABLE TO MAKE NEEDS KNOWN. RESP EVEN AND UNLABORED ON ROOM AIR. DENIED OF PAIN AT THIS TIME. ON IV ACCESS AT THIS TIME. RIGHT BELOW KNEE AMPUTATION NOTED. UPPER ARM CONTRACTED. PLAN OF CARE DISCUSSED WITH PATIENT. PATIENT VERBALIZED UNDERSTANDING. CALL LIGHT WITHIN REACH. WILL CONTINUE TO MONITOR.
--- NOTE | 2020-05-26 07:55 | NUR ---
PATIENT HAS BEEN SCREENED AND CATEGORIZED HIGH NUTRITION RISK. PATIENT WILL BE SEEN WITHIN 1-2 DAYS OF ADMISSION. 05/24/20 - 05/26/20 TEJINDER SALINAS MBA, RD
[2020-05-26 08:00] VITALS: BP 131/61
[2020-05-26] MEDS ORDERED: VANCOMYCIN 750 MG in DEXTROSE 5% 250 ML IV SCH (09:00)
[2020-05-26] MEDS: FUROSEMIDE 40 MG TAB PO SCH ×2 (10:52→23:41)
[2020-05-26] MEDS: CALCIUM ACETATE 667 MG TAB PO SCH ×3 (10:52→18:59)
[2020-05-26] MEDS: amLODIPine 5 MG TAB PO SCH (10:54)
[2020-05-26] MEDS: ATORVASTATIN 80 MG TAB PO SCH (10:54)
[2020-05-26] MEDS: carvediloL 12.5 MG TAB PO SCH ×2 (10:54→23:41)
--- NOTE | 2020-05-26 10:55 | NUR ---
PATIENT IN BED AWAKE AND ALERT. RESP EVEN AND UNLABORED ON ROOM AIR. DENIED OF PAIN AT THIS TIME. PATIENT BEING VERY DIFFICULT IN DAILY CARE. AFTER SEVERAL ATTEMPTS, PATIENT ABLE TO FOLLOW COMMANDS AND COMPLIED. RIGHT FEMORAL DIALYSIS CATH IS DRY AND MINIMAL DRAINAGE ON GAUZE. CALL LIGHT WITHIN REACH. WILL CONTINUE TO MONITOR.
--- NOTE | 2020-05-26 12:35 | NUR ---
PATIENT SLEEPING IN BED, CHEST NOTED RISING. NO ACUTE S/S DISTRESS. CALL LIGHT WITHIN REACH. WILL CONTINUE TO MONITOR.
[2020-05-26] MEDS: NACL 0.9% IRR 250 ML BOTTLE IR SCH (13:09)
[2020-05-26] MEDS: LOSARTAN 50 MG TAB PO SCH ×2 (13:09→23:41)
[2020-05-26] MEDS: NON ADHERENT DRESSING TP SCH (13:09)
[2020-05-26] MEDS: Z-GUARD PASTE TP SCH (13:10)
--- NOTE | 2020-05-26 13:43 | NUR ---
DR MORALES AT BEDSIDE. Addendum: 05/26/20 at 1344 by Blake Paniagua RN MADE AWARE OF NO IV ACCESS AND DRESSING TO RIGHT FEMORAL DIALYSIS CATH SATURATED WITH BLOOD.
--- NOTE | 2020-05-26 14:13 | NUR ---
05/26/20 RD INITIAL ASSESSMENT COMPLETED PLEASE REFER TO NUTRITION ASSESSMENT UNDER CARE ACTIVITY FOR ESTIMATED NUTRITIONAL NEEDS. 1. RECOMMEND CCHO 60M, RENAL 80 GM PROTEIN DIET TOLERATED 2. RECOMMEND NEPRO BID AND HEATH BID 3. RD PROVIDED HIGH PROTEIN NUTRITION EDUCATION FOR WOUND HEALING 4. RD TO FOLLOW-UP 3-5 DAYS, MODERATE RISK ERIK ARNETT, RD
--- NOTE | 2020-05-26 15:35 | NUR ---
PATIENT IN BED AWAKE AND ALERT. REQUESTING FOR ENSURE. PROVIDED PATIENT WITH TWO ENSURE AND PATIENT FINISHED BOTH. DRESSING ON RIGHT FEMORAL SATURATED WITH BLOOD. CHANGED AND REINFORCED. DR AWARE OF PATIENT STATUS. NO NOTED ACUTE S/S DISTRESS AT THIS TIME. CALL LIGHT WITHIN REACH. WILL CONTINUE TO MONITOR.
[2020-05-26 16:00] VITALS: BP 108/48
--- NOTE | 2020-05-26 17:38 | NUR ---
PATIENT IN BED SLEEPING. CHEST NOTED RISING. NO ACUTE S/S DISTRESS. WILL CONTINUE TO MONITOR.
[2020-05-26 19:17] LABS: BASOPHILS # (AUTO) 0.1 K/uL (0.00-0.22); BASOPHILS % (AUTO) 2.2 % (0.0-2.0); EOSINOPHILS # (AUTO) 0.3 K/uL (0-0.4); EOSINOPHILS % (AUTO) 4.7 % (0.0-4.0); MEAN CORPUSCULAR HEMOGLOBIN 32 pg (27-31); MEAN CORPUSCULAR HGB CONC 35 g/dL (33-37); MEAN CORPUSCULAR VOLUME 93.5 fL (80-94); MONOCYTES # (AUTO) 0.5 K/uL (0.8-1.0); MONOCYTES % (AUTO) 8.1 % (1.7-9.3); NEUTROPHILS # (AUTO) 3.8 K/uL (1.8-7.7); PLATELET COUNT (AUTO) 129 K/uL (140-450); RED BLOOD CELL COUNT(AUTO) 1.46 MIL/uL (4.20-6.10); RED CELL DISTRIBUTION WIDTH 15.4 % (11.6-13.7); WHITE BLOOD COUNT (AUTO) 5.7 K/uL (4.8-10.8)
[2020-05-26 19:26] LABS: HEMATOCRIT 13.6 % (36-52); HEMOGLOBIN 4.7 g/dL (12.0-18.0)
[2020-05-26 19:27] LABS: ANION GAP 9.7 (8-16); CARBON DIOXIDE 30.5 mmol/L (21-32); POTASSIUM 4.2 mmol/L (3.5-5.1)
--- NOTE | 2020-05-26 19:35 | NUR ---
ENDORSED PATIENT TO NIGHT NURSE. PATIENT IN STABLE CONDITION.
--- NOTE | 2020-05-26 19:40 | NUR ---
RECEIVED PT FROM AM NURSE IN FAIR CONDITION. AWAKE,ALERT AND ORIENTED X2-3. CONFUSED AT TIMES. MED SURG. WITH RT GROIN HD CATH BLEEDING. DRESSING REINFORCED. HAS O IV ACCESS . BUT HGB AND HCT GETTING LOW 4.7 AND 13.6 RESPECTIVELY. FOR TRANSFUSION OF 2 UNITS PRBC AFTER PICC LINE INSERTION. . NO DISCOMFORT NOTED. FREQ ROUNDS NEEDED. BED ON LOW POSITION/. SIDE RAILS UP X2. CALL LIGHT WITHIN REACH. WILL CONTINUE TO MONITOR.
[2020-05-26 20:00] VITALS: BP 111/52
--- NOTE | 2020-05-26 20:45 | NUR ---
ABLE TO CONTACT KATIE (DAUGHTER) AND GAVE CONSENT FOR PICC LINE INSERTION VERIFIED BY PIA AVILA CHARGE.
[2020-05-26] MEDS ORDERED: LORazepam 2 MG/ML VIAL ONE (21:04)
[2020-05-26] MEDS ORDERED: LORazepam 2 MG/ML VIAL IM/IVP PRN (21:05)
--- NOTE | 2020-05-26 21:30 | NUR ---
MIDLINE ACCESS ON RT UPPER ARM INSERTED BY PICC LINE NURSE. HE SAID IT IS READY TO USE.
--- NOTE | 2020-05-26 22:55 | NUR ---
IST UNIT PRBC STARTED TRANSFUSION AFTER VERIFIED BY ANOTHER RN ,HERVE. VITAL SIGNS TAKEN PRIOR TO STARTING BLOOD. WILL CONTINUE TO MONITOR.
[2020-05-27 00:25] VITALS: BP 149/65
--- NOTE | 2020-05-27 02:15 | NUR ---
IST UNIT PRBC TRANSFUSION DONE. WITH BP 161/64. NO FEVER NOTED. WILL CHECKED VITAL SIGNS PRIOR TO STARTING THE 2ND UNIT.
[2020-05-27] MEDS ORDERED: hydrALAZINE 20 MG/ML VIAL IVP PRN (03:10)
[2020-05-27] MEDS ORDERED: hydrALAZINE 20 MG/ML VIAL ONE (03:10)
--- NOTE | 2020-05-27 03:19 | NUR ---
PT ON 2ND UNIT PRBC TRANSFUSION. BP ELEVATED 171/66 HR-78. CALLED DR. PAUL CALLED BACK AND MADE AWARE . WITH ORDER PRN HYDRALAZINE 10 MG IVP FOR SBP GREATER 150 Q6 HRS PRN.
--- NOTE | 2020-05-27 04:00 | NUR ---
NO MORE BLEEDING NOTE ON THE RT GROIN AND RT UPPER ARM MIDLINE.
--- NOTE | 2020-05-27 05:30 | NUR ---
RT GROIN HD CATHETER STILL BLEEDING. CLEANED AREA DRESSING CHANGED AND APPLIED SANDBAG. ASSISTED BY MORRIS RN WATER PURIFIER OPERATOR.
--- NOTE | 2020-05-27 06:05 | NUR ---
BLOOD TRANSFUSION DONE @ 0550 AND NO REACTION NOTED. VITAL SIGNS STABLE.
--- NOTE | 2020-05-27 07:10 | NUR ---
REC'D REPORT FROM SLUDGE CONTROL ATTENDANT NURSE. PT STABLE. ON RA. BED LOWEST POSITION. CALL LIGHT WITHIN REACH. HAS 4LB SAND BAG ON R. FEMORAL TUNNEL CATHETER TO CONTROL CATHETER SITE BLEEDING.
--- NOTE | 2020-05-27 07:20 | NUR ---
ENDORSED PT IN STABLE CONDITION TO AM NURSE.
[2020-05-27 08:00] VITALS: BP 153/65
[2020-05-27] MEDS: CALCIUM ACETATE 667 MG TAB PO SCH ×3 (08:00→17:00)
--- NOTE | 2020-05-27 08:25 | NUR ---
SPOKE TO YENNY AVITIA DAUGHTER OF PT, OBTAINED PROCEDURE CONSENT FOR SUTURE CONTROL OF BLEEDING CATHETER. SENT MESSAGE TO DR. RALPH TO INFORM
[2020-05-27] MEDS: LOSARTAN 50 MG TAB PO SCH ×2 (09:00→20:55)
[2020-05-27] MEDS: amLODIPine 5 MG TAB PO SCH (09:00)
[2020-05-27] MEDS: FUROSEMIDE 40 MG TAB PO SCH ×2 (09:00→20:55)
[2020-05-27] MEDS: ATORVASTATIN 80 MG TAB PO SCH (09:00)
[2020-05-27] MEDS: carvediloL 12.5 MG TAB PO SCH ×2 (09:00→20:55)
[2020-05-27] MEDS: EPOETIN ALFA 10,000 UNITS/ML VIAL IV SCH (09:00)
[2020-05-27] MEDS ORDERED: MORPHINE SULFATE 4 MG/ML SYR ONE (09:59)
--- NOTE | 2020-05-27 10:05 | NUR ---
PER DR. RALPH ADMINISTER 4MG IV MORPHINE FOR PAIN HE SUTURED PT.'S TUNNEL CATHETER TO CONTROL BLEEDING, PT TOLERATED PROCEDURE WELL
--- NOTE | 2020-05-27 10:35 | NUR ---
WOUND CARE EVALUATION NOTE: WOUND ASSESSMENT DONE TO LEFT FOOT AND PT. WITH RT GROIN HD CATHETER BLEEDING, AREA JAMES BANDAGE DRESSING WITH SANDBAG. PT. REFUSED TO TURN FOR SACRAL WOUND ASSESSMENT. ALL ABOVE INFORMATION DISCUSSED WITH PRIMARY RN. POC DISCUSSED. PER PRIMARY RN, PT IS SCHEDULED FOR HD CATHETER RE INSERTION /SUTURES PROCEDURES. CALL PLACED TO AMALIA DUNLAP POC DISCUSSED WITH REQUEST OF LENS POLISHER HAND CONSULT.PERTaya NAVAS HE WILL COME THIS AFTERNOON TO VISIT PT. POC DISCUSSED WITH PRIMARY RN AND PT. INTEGUMENTARY: -RIGHT BKA, STUMP OLD HEALED SCAR -RIGHT GROIN HD CATH WITH DRESSING AND SANDBAG IN PLACE, -LEFT HALLUX WET GANGRENE 2.5X1.5X0.3 CM SMALL AMOUNT PURULENT DRAINAGE, LEROY WOUND SKIN DRY SCALY WITH HYPERPIGMENTATION -LEFT 5TH DIGIT TOE TO PARTIAL DORSAL FOOT 5X2 DRY GANGRENE -LEFT HEEL PRESSURE INJURY UN-STAGEABLE 5X5CM 100% BROWN ESCHAR TISSUE, WOUND EDGE LOOSE PARTIAL THICKNESS SKIN LOSS WITH 3.5X2X0.1CM OOZING SMALL AMOUNT PURULENT DRAINAGE, MILD ODOR. -LEFT LEROY-ANKLE PAD UN-STAGEABLE 2.5X2X0.5CM 100 % SOFT YELLOW/BROWN SOFT SLOUGH TISSUE, SMALL AMOUNT PURULENT DRAINAGE, MILD ODOR. -SACRALCOCCYX PRESSURE INJURY PHOTO REVIEWS, WILL FOLLOW PROTOCOL FOR WOUND CARE AT THIS TIME RECOMMENDATIONS: -PODIATRY CONSULT FOR LEFT FOOT -CLEANSE SACRALCOCCYX WITH NS, PAT DRY, APPLY ADAPTIC DRESSING AND COVER WITH DRY DRESSING QD AND PRN IF SOILING -APPLY SOAKED BETADINE SOLUTION TO LEFT FOOT TOES, LEROY-ANKLE AND HEELS WRAP WITH KERLIX ROLLS QD AND PRN -APPLY HYDRAGUARD TO TRUNK OF BODY AND ALL EXTREMITIES BID AND PARTICIPANT ADMINISTRATOR -KEEP SKIN DRY AND CLEAN AT ALL TIME -OFFLOAD BILATERAL HEELS BY PLACING PILLOWS UNDER CALVES UNLESS OTHERWISE CONTRAINDICATED -PRESSURE REDISTRIBUTION SURFACE THERAPY -TURN AND REPOSITION Q2H, OFFLOAD SACRALCOCCYX BY TURNING RIGHT AND LEFT -CONTINUE TO FOLLOW RD RECOMMENDATIONS PLEASE CONTACT WOUND CARE NURSE FOR ANY QUESTIONS AND CHANGES IN SKIN CONDITION.
--- NOTE | 2020-05-27 11:00 | NUR ---
REC'D CALL FROM YUN AT PHARMACY, WOULD LIKE DIALYSIS NURSE TO ADMINISTER VANCOMYCIN DURING LAST HOUR OF DIALYSIS DT PT. NOT HAVING AN IV LINE. WILL FORWARD MESSAGE TO DIALYSIS NURSE.
[2020-05-27] MEDS: HYDROcodone/APAP 5/325 MG 1 TAB TAB PO PRN (11:22)
--- NOTE | 2020-05-27 11:25 | NUR ---
SENT MESSAGE TO DR. RALPH, NOTIFYING HIM PT'S DRESSING FROM PROCEDURE ARE SATURATED WITH BLOOD, WILL AWAIT ORDERS/RECOMMENDATIONS, WILL CONTINUE TO MONITOR
--- NOTE | 2020-05-27 11:45 | NUR ---
SPOKE TO DIALYSIS NURSE, WILL NOT BE ABLE TO ADMINISTER VANCOMYCIN SINCE IT WILL INTERFERE WITH DIALYSIS PRESSURE. SPOKE TO YUN, WHO VERBALLY UNDERSTOOD
[2020-05-27] MEDS: GAUZE TP SCH ×2 (13:00)
[2020-05-27] MEDS: Z-GUARD PASTE TP SCH (13:00)
[2020-05-27] MEDS: NON ADHERENT DRESSING TP SCH (13:00)
[2020-05-27] MEDS: NACL 0.9% IRR 250 ML BOTTLE IR SCH (13:00)
[2020-05-27] MEDS: HYDRAGUARD CREAM TP SCH (13:00)
--- NOTE | 2020-05-27 13:00 | NUR ---
CHANGED DRESSING SINCE IT WAS SATURATED WITH BLOOD, CLEANSED WITH NORMAL SALINE AND REPLACED BIOPATCH, SENT MESSAGE TO DR. RALPH NOTIFYING OF CONTINUING BLEEDING
--- NOTE | 2020-05-27 13:30 | NUR ---
PER DR. RALPH, APPLY 10 LB SAND BAG TO FEMORAL CATHETER SITE TO CONTROL BLEEDING. WILL NEED TO CHANGE OUT PORT. SPOKE WITH DR. TRACY AND INFORMED HIM OF BLEEDING SITUATION, STATED HE WOULD LIKE DR. RALPH TO TAKE CARE OF BLEEDING SITUATION
--- NOTE | 2020-05-27 14:30 | NUR ---
PLACE 10LB BAG ON PATIENT, PT TOLERATED PROCEDURE WELL.
[2020-05-27 16:00] VITALS: BP 131/48
[2020-05-27 16:31] LABS: HEMATOCRIT 23.2 % (36-52); HEMOGLOBIN 7.9 g/dL (12.0-18.0)
--- NOTE | 2020-05-27 17:00 | NUR ---
DIALYSIS NURSE BRANDON SPOKE TO DR. RALPH REGARDING BLEEDING OF TUNNELED CATHETER, SHE REPLACED DRESSING AND CONTINUED WITH DIALYSIS. NO NEED TO REMOVE AT THIS TIME
--- NOTE | 2020-05-27 19:35 | NUR ---
ENDORSED TO PRINCIPAL MECHANICAL ENGINEER NURSE, PT CURRENTLY UNDERGOING DIALYSIS
[2020-05-27 20:00] VITALS: BP 132/54
--- NOTE | 2020-05-27 20:00 | NUR ---
RECEIVED BEDSIDE REPORT EARLIER FROM DAY RN REGARDING THE PT FOR CONTINUITY OF CARE. RECEIVED PT LAYING IN BED DIALYSIS ON GOING AND SYRUP MAKER COOK TAYLOR AT THE BEDSIDE. PT A/AOX1, CONFUSED. NO SIGN AND SYMPTOMS OF DISTRESS NOTED. PT HAS SAND BAG ON THE RT GROIN WHERE THE DIALYSIS CATHETER IS. PER DAY RN PT WAS ADMITTED BECAUSE OF BLEEDING FROM THE DIALYSIS CATHETER. NO BLEEDING NOTED ON THE SITE AT THIS TIME. NO COMPLAIN FROM THE PT AT THIS TIME. CALL LIGHT WITHIN REACH. WILL CONTINUE POC AND MONITORING.
[2020-05-27] MEDS ORDERED: VANCOMYCIN 750 MG in DEXTROSE 5% 250 ML IV SCH (21:00)
--- NOTE | 2020-05-27 22:00 | NUR ---
PATIENT REFUSED HIS P.O. MEDICATIONS AT THIS TIME.
--- NOTE | 2020-05-28 | NUR ---
NOTED THAT THE PT RT UPPER ARM MIDLINE BLEEDING. WILL CHANGE THE DRESSING. NO BLEEDING ON THE RT GROIN DIALYSIS CATHETER AT THIS TIME. WILL CONTINUE TO MONITOR.
[2020-05-28] MEDS: NACL 0.9% IRR 250 ML BOTTLE IR SCH ×2 (01:00→13:00)
[2020-05-28] MEDS: HYDRAGUARD CREAM TP SCH ×2 (01:00→13:00)
[2020-05-28] MEDS: Z-GUARD PASTE TP SCH ×2 (01:00→13:00)
--- NOTE | 2020-05-28 01:00 | NUR ---
NOTED THAT THE PT RUDY MIDLINE IS BLEEDING .CHANGED THE DRESSING ON THE RUDY MIDLINE AND WILL MONITOR FOR BLEEDING. NO BLEEDING NOTED ON THE PT RT GROIN DIALYSIS CATHETER. TOOK THE SAND BAG OFF EARLIER AFTER THE DIALYSIS WAS DONE.
--- NOTE | 2020-05-28 03:23 | NUR ---
PATIENT WAS REQUESTING FOR NEPRO EARLIER. TEXTED THE COVERING MD LING FOR DR TUCKER AND MADE AWARE OF THE PT REQUEST AWAITING FOR MD TO CALL BACK.
[2020-05-28 04:00] VITALS: BP 145/60
[2020-05-28] MEDS: HYDROcodone/APAP 5/325 MG 1 TAB TAB PO PRN ×2 (05:30→12:31)
--- NOTE | 2020-05-28 05:52 | NUR ---
PT C/O PAIN ON HIS RT FOOT WOUND AND REQUESTED FOR PAIN MEDS. PRN NORCO GIVEN. VSS.
--- NOTE | 2020-05-28 06:48 | NUR ---
TEXTED DR TUCKER AND NOTIFIED MD THAT THE PT RUDY MIDLINE IS BLEEDING. CHANGED THE DRESSING AND REINFORCING THE DRESSING. DR TUCKER AWARE AND ORDERED FIBRINOGEN LEVEL.
--- NOTE | 2020-05-28 07:08 | NUR ---
PATIENT STABLE. NO SIGN AND SYMPTOMS OF DISTRESS NOTED AT THIS TIME.ALL NEEDS ATTENDED.WILL ENDORSE THE PT TO THE ONCOMING RN FOR CONTINUITY OF CARE.CALL LIGHT WITHIN REACH.
--- NOTE | 2020-05-28 07:41 | NUR ---
REC'D REPORT FROM [employer] MANAGER NURSE, PT STABLE. RA. CALL LIGHT WITHIN REACH. NO FLUIDS RUNNING
[2020-05-28] MEDS: CALCIUM ACETATE 667 MG TAB PO SCH ×3 (08:10→19:12)
[2020-05-28] MEDS: carvediloL 12.5 MG TAB PO SCH ×2 (08:11→20:08)
[2020-05-28] MEDS: LOSARTAN 50 MG TAB PO SCH ×2 (08:12→20:08)
[2020-05-28] MEDS: FUROSEMIDE 40 MG TAB PO SCH ×2 (08:12→20:09)
[2020-05-28] MEDS: amLODIPine 5 MG TAB PO SCH (08:13)
[2020-05-28] MEDS: ATORVASTATIN 80 MG TAB PO SCH (08:13)
--- NOTE | 2020-05-28 08:30 | NUR ---
ADMINISTERED MEDICATION PER DR. ORDER, PT TOLERATED PROCEDURE WELL.
--- NOTE | 2020-05-28 11:05 | NUR ---
OBSERVED PT'S R. FOREARM MIDLINE DRESSING SITE BLEEDING, PT. DID NOT ALLOW ME TO CHANGE OUT GAUZE, STATED HE DID NOT WANT ANYONE TO TOUCH IT, MOVED ARM AWAY. DID NOT CONTINUE SINCE HE HAS A HISTORY OF PULLING OUT LINES WHEN AGITATED. OBTAIN CONSENT FROM PATIENT TO COVER WITH GAUZE WHICH SEEMED TO PLEASE HIM SINCE HE COULD NOT LONGER SEE IT.
--- NOTE | 2020-05-28 12:05 | NUR ---
REQUEST FROM DR. MORALES FOR NEPHRO SUPPLEMENT ORDER, PT REFUSED TO EAT BREAKFAST, OK PER DR. SONI TO PLACE ORDER FOR NEPHO SUPPLEMENT. SPOKE TO ERIK IN NUTRITION SERVICES TO INFORM
--- NOTE | 2020-05-28 12:35 | NUR ---
PT CO PAIN ON L. LEG. DOES NOT WANT FOR IT TO BE ELEVATED WITH PILLOW . REQUESTS PAIN MEDICATION. NORCO 5/325MG GIVEN. PT TOLERATED PROCEDURE WELL
[2020-05-28] MEDS: GAUZE TP SCH ×2 (13:00)
[2020-05-28] MEDS: NON ADHERENT DRESSING TP SCH (13:00)
--- NOTE | 2020-05-28 13:33 | NUR ---
PT REFUSED FOR SACRAL WOUND AND LEFT FOOT DRESSING CHANGES. STATES HE WAS IN TOO MUCH PAIN AND DID NOT WANT ME TO TOUCH HIM. REFUSED DRESSING CHANGE AND WOUND CLEANSING.
--- NOTE | 2020-05-28 14:45 | NUR ---
SPOKE TO NENA. 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 RALPH OBTAIN CONSENT FOR HEMODIALYSIS CATHETER PLACEMENT. HE IS REQUESTING A JANIS CATH KIT, WITH SIZE 7 STERILE GLOVES, FLUSHES AND HEPARING 5000 TO BE READY WHEN HE COMES IN TO PERFORM CATHETER PLACEMENT.
[2020-05-28 16:00] VITALS: BP 112/35
--- NOTE | 2020-05-28 16:00 | NUR ---
SPOKE TO YENNY AVITIA, DAUGHTER OF PATIENT, OVER PHONE AND OBTAINED CONSENT FOR HEMODIALYSIS CATHETER PLACEMENT. PLACED CONSENT IN PATIENT'S CHART
--- NOTE | 2020-05-28 19:27 | NUR ---
ENDORSED PT TO CLERICAL SUPERVISOR NURSE, PT IN STABLE CONDITION. RA. CALL LIGHT WITHIN REACH. BED LOWEST POSITION.
[2020-05-28 20:00] VITALS: BP 137/61
--- NOTE | 2020-05-28 20:00 | NUR ---
RECEIVED BEDSIDE REPORT EARLIER FROM DAY RN REGARDING THE PT FOR CONTINUITY OF CARE. RECEIVED PT LAYING IN BED. PT A/AOX1, CONFUSED. NO SIGN AND SYMPTOMS OF DISTRESS NOTED. NO BLEEDING ON DIALYSIS CATHETER NOTED AT THIS TIME. NO COMPLAIN FROM THE PT AT THIS TIME. FALL PRECAUTION IMPLEMENTED. BED IN LOW POSITION AND BED ALARM ON. CALL LIGHT WITHIN REACH. WILL CONTINUE POC AND MONITORING
--- NOTE | 2020-05-28 22:00 | NUR ---
PATIENT REFUSED HIS P.O. MEDICATIONS SCHEDULED TONIGHT.
--- NOTE | 2020-05-29 | NUR ---
PATIENT ASKED FOR SOMETHING TO DRINK AND GLUCERNA GIVEN ORDERED.
[2020-05-29] MEDS: NACL 0.9% IRR 250 ML BOTTLE IR SCH ×2 (00:25→13:00)
[2020-05-29] MEDS: HYDRAGUARD CREAM TP SCH ×2 (00:25→06:01)
[2020-05-29] MEDS: Z-GUARD PASTE TP SCH ×2 (00:26→06:01)
[2020-05-29] MEDS: HYDROcodone/APAP 5/325 MG 1 TAB TAB PO PRN (01:59)
--- NOTE | 2020-05-29 02:00 | NUR ---
PT C/O PAIN ON HIS RT FOOT WOUND AND REQUESTED FOR PAIN MEDS. PRN NORCO GIVEN. VSS.
[2020-05-29 04:00] VITALS: BP 134/80
--- NOTE | 2020-05-29 04:00 | NUR ---
PATIENT ASLEEP AT THIS TIME WITH VISIBLE CHEST RISE AND FALL NOTED. SAFETY MEASURES IN PLACED.
[2020-05-29] MEDS: CALCIUM ACETATE 667 MG TAB PO SCH ×3 (08:46→17:25)
[2020-05-29] MEDS: ATORVASTATIN 80 MG TAB PO SCH (08:52)
--- NOTE | 2020-05-29 09:05 | NUR ---
SCHEDULED MORNING MEDICATIONS GIVEN, BP MEDS, LASIX AND PROCRIT BEING HOLD DUE TO DIALYSIS. THE DIALYSIS IS HERE ALREADY. WILL ADMINISTER AFTER THE DIALYSIS. PATIENT AWAKE. SITTING IN BED WITH NO ACUTE DISTRESS NOTED. WILL CONTINUE TO MONITOR.
[2020-05-29 11:05] LABS: CREATININE 2.9 mg/dL (0.6-1.3)
[2020-05-29] MEDS: EPOETIN ALFA 10,000 UNITS/ML VIAL IV SCH (11:30)
--- NOTE | 2020-05-29 11:30 | NUR ---
PROCRIT WAS ADMINISTERED BY DIALYSIS NURSE SRIDHAR WHEN FINISHED THE DIALYSIS. 1L OUT FROM THE DIALYSIS. PATIENT TOLERATED THE PROCEDURE WELL.
[2020-05-29] MEDS: LOSARTAN 50 MG TAB PO SCH ×2 (12:15→21:26)
[2020-05-29] MEDS: FUROSEMIDE 40 MG TAB PO SCH (12:15)
[2020-05-29] MEDS: carvediloL 12.5 MG TAB PO SCH ×2 (12:15→21:26)
[2020-05-29] MEDS: amLODIPine 5 MG TAB PO SCH (12:15)
--- NOTE | 2020-05-29 12:15 | NUR ---
PHOSLO GIVEN SCHEDULED. MORNING DOSE BP MEDS GIVEN AFTER THE DIALYSIS FOR BP 147/66. EDUCATION PROVIDED, SAFETY MEASURES IN PLACE, WILL CONTINUE TO MONITOR.
[2020-05-29] MEDS: GAUZE TP SCH ×2 (13:00)
[2020-05-29] MEDS: NON ADHERENT DRESSING TP SCH (13:00)
--- NOTE | 2020-05-29 13:00 | NUR ---
SACRAL WOUND DRESSING INTACT. RIGHT TOE WOUND OPEN, NO DRESSING. PATIENT REFUSED WOUND CARE AND DRESSING APPLY. EXPLAINED TO THE PATIENT THE INDICATIONS OF THE WOUND CARE. PATIENT STILL REFUSED. WILL CONTINUE TO MONITOR.
[2020-05-29 16:00] VITALS: BP 105/32
[2020-05-29] MEDS ORDERED: VANCOMYCIN 750 MG in NACL 0.9% 250 ML IV SCH (16:00)
--- NOTE | 2020-05-29 16:03 | NUR ---
SCHEDULED VANCO ADMINISTERED VIA IVPB. EDUCATION PROVIDED. PATIENT DENIES PAIN OR DISCOMFORT AT THIS TIME. SAFETY MEASURES IN PLACE, WILL CONTINUE TO MONITOR.
--- NOTE | 2020-05-29 18:32 | NUR ---
INFORMED BY CHARGE NURSE YAMEL THAT [facility] GOT [facility] AVAILABLE FOR THE PATIENT. ETA DRAWER IN DOBBY LOOM TIME 1900. DISCHARGE ORDER NOT BEEN FINALIZED YET, SINCE INFORMED THAT THERE WAS NO BED AVAILABLE EARLIER. WILL FINALIZE THE DISCHARGE ORDER WHEN HE IS AVAILABLE. WILL FOLLOW UP.
[2020-05-29 19:10] VITALS: BP_SYST 119; BP_SYST 134; BP_DIAS 49; BP_DIAS 61
--- NOTE | 2020-05-29 19:10 | NUR ---
REPORT GIVEN TO RONAN/PIA OF [facility]. PATIENT'S MADE AWARE THAT PATIENT IS GOING TO TRANSFER. PATIENT IN STABLE CONDITION.
--- NOTE | 2020-05-29 19:40 | NUR ---
ENDORSED PATIENT TO FNPS RN FOR CONTINUITY OF CARE/DISCHARGE.
--- NOTE | 2020-05-29 19:41 | NUR ---
Patient's Plan of Care was discussed and reviewed with WRAPPING CLERK: ALISON LECHUGA
--- NOTE | 2020-05-29 19:41 | NUR ---
RECD. RESTING IN BED, AWAKE, A/OX1. REORIENTED TO HOSPITAL SETTING. RESPIRATION EVEN AND UNLABORED. ON ROOM AIR. IV SALINE LOCK AT THE RIGHT UPPER ARM MIDLINE, INTACT. RIGHT GROIN DIALYSIS CATHETER IN PLACED. WITH MULTIPLE PRESSURE ULCERS. SAFETY MEASURES ENFORCED. BED IN THE LOWEST POSITION, SIDE RAILS UP. BED ON ALARM. NO APPEARANCE OF PAIN NOTED, 0/10.
[2020-05-29 20:00] VITALS: BP 136/77
--- NOTE | 2020-05-29 20:00 | NUR ---
DISCHARGE INSTRUCTIONS GIVEN. PICTURES TAKEN OF THE WOUNDS FOR DOCUMENTATION. .
--- NOTE | 2020-05-29 20:30 | NUR ---
FOLLOW UP WITH [facility] BUT NOBODY ANSWERS. LEFT A MESSAGE.
--- NOTE | 2020-05-29 20:35 | NUR ---
CALL [facility] BUT MALIK IS BUSY PUSHING MEDICATIONS SPOKE WITH ANOTHER STAFF, INFORMING THAT [facility] CANNOT BE CONTACTED. TRANSFER CALL TO ADMITTING STAFF WHO SAID THAT [facility] ONLY AGENT SPA DESK PATIENT ONLY UP TO 1999.
--- NOTE | 2020-05-29 22:00 | NUR ---
NURSE MALIK OF [facility] CALLED AND WAS INFORMED WHAT HAPPENED WHY PATIENT WAS NOT TRANSFERRED TONIGHT.PIA GAN WILL ALSO INFORM THEIR SANDING MACHINE TENDER.
--- NOTE | 2020-05-30 | NUR ---
SLEEPING COMFORTABLY IN BED.
[2020-05-30] MEDS: HYDRAGUARD CREAM TP SCH ×2 (01:00→13:00)
[2020-05-30] MEDS: Z-GUARD PASTE TP SCH ×2 (01:00→13:00)
[2020-05-30] MEDS: NACL 0.9% IRR 250 ML BOTTLE IR SCH ×2 (01:00→13:00)
--- NOTE | 2020-05-30 02:00 | NUR ---
OCCASIONALLY SHOUTS IN BED. CONFUSED.
[2020-05-30 04:00] VITALS: BP 139/77
--- NOTE | 2020-05-30 04:05 | NUR ---
AWAKE IN BED, REQUESTED TO WATER TO DRINK. WENT BACK TO SLEEP AGAIN.
--- NOTE | 2020-05-30 06:00 | NUR ---
STILL SLEEPING COMFORTABLY IN BED.
--- NOTE | 2020-05-30 07:00 | NUR ---
CONDITION REMAIN STABLE. WILL ENDORSE TO AM SHIFT NURSE FOR CONTINUITY OF CARE.
[2020-05-30 08:00] VITALS: BP 119/61
[2020-05-30] MEDS: ATORVASTATIN 80 MG TAB PO SCH (08:57)
[2020-05-30] MEDS: CALCIUM ACETATE 667 MG TAB PO SCH ×2 (08:57→12:17)
[2020-05-30] MEDS: amLODIPine 5 MG TAB PO SCH (08:58)
[2020-05-30] MEDS: LOSARTAN 50 MG TAB PO SCH (08:58)
[2020-05-30] MEDS: carvediloL 12.5 MG TAB PO SCH (08:58)
--- NOTE | 2020-05-30 09:02 | NUR ---
SCHEDULED MEDICATIONS GIVEN, EDUCATION PROVIDED, PATIENT RESTING IN BED WITH LEFT LATERAL POSITION. NO ACUTE DISTRESS NOTED. SAFETY MEASURES IN PLACE, WILL CONTINUE TO MONITOR.
--- NOTE | 2020-05-30 10:45 | NUR ---
REACHED OUT [facility], SPOKE WITH PIERO/PIA TO REQUEST OF THE TRANSFER. PER PIERO, SHE WILL CALL THE TECHNICAL SUPPORT TECHNICIAN AND WILL CALL SN BACK. WILL FOLLOW UP.
[2020-05-30 10:49] LABS: ANION GAP 6.7 (8-16); CREATININE 3.1 mg/dL (0.6-1.3); POTASSIUM 3.7 mmol/L (3.5-5.1)
--- NOTE | 2020-05-30 11:09 | NUR ---
RECEIVED A CALL BACK FROM [facility] STATING THAT THEY HAVE BED AVAILABLE FOR THE PATIENT, NEED TO CALL [facility] TO SOFTWARE RELEASE MANAGER THE PATIENT.
--- NOTE | 2020-05-30 11:10 | NUR ---
CALLED [facility], SPOKE WITH FLYNN, STATED THAT THEY ARE WAITING FOR THEIR WIRE BOUND BOX MACHINE OPERATOR TO GIVE THEM A CALL BACK IF THEY STILL HAVE A BED FOR PT.
--- NOTE | 2020-05-30 11:50 | NUR ---
CALLED [facility] TO GIVEN REPORT, HOWEVER, BEING HOLD FOR OVER 20 MINS, NO ONE ANSWERS. WILL TRY TO CALL BACK AGAIN.
--- NOTE | 2020-05-30 12:14 | NUR ---
PER TITO-PIA, [facility] CALLED HER THAT THEY HAVE A BED FOR PT (ROOM 703-A). CONTACTED VANITA FROM [facility]. TRANSPORT AUTH:[id number], SNF AUTH: [id number]. FAXED CLINICALS TO [facility], SPOKE WITH DANILO TEL#([phone]), STATED HE WILL CALL ME BACK. RN ASSIGNED MADE AWARE.
[2020-05-30] MEDS: NON ADHERENT DRESSING TP SCH (13:00)
[2020-05-30] MEDS: GAUZE TP SCH ×2 (13:00)
--- NOTE | 2020-05-30 13:00 | NUR ---
WOUND CARE PERFORMED, PATIENT TOLERATED WELL, SAFETY MEASURES IN PLACE, WILL CONTINUE TO MONITOR.
--- NOTE | 2020-05-30 13:30 | NUR ---
REPORT GIVEN TO PIERO/PIA OF [facility]. [facility] CALLED. WILL COME TO DAIRY PROCESSING EQUIPMENT OPERATOR THE PATIENT SHORTLY.
--- NOTE | 2020-05-30 14:33 | NUR ---
PATIENT WAS PICKED UP BY THE [facility], PATIENT IN STABLE CONDITION. DISCHARGE PROTOCOL FOLLOWED.
== END 2020-05-30 14:35 | DRG 206 ==
LOC: MED 13:48 → MMU 22:01 → EEVIPCON 22:01 → MTU 05-25 19:01
PROVIDERS: ADMIT Hospitalist; ATTEND Hospitalist
PROC: 30233N1 Transfusion of Nonautologous Red Blood Cells into Peripheral Vein, Percutaneous Approach (ICD-10-PCS; 2020-05-24)
PROC: 5A1D70Z Performance of Urinary Filtration, Intermittent, Less than 6 Hours Per Day (ICD-10-PCS; 2020-05-25)
PROC: 5A1D70Z Performance of Urinary Filtration, Intermittent, Less than 6 Hours Per Day (ICD-10-PCS; 2020-05-26)
PROC: 0HQHXZZ Repair Right Upper Leg Skin, External Approach (ICD-10-PCS; principal; 2020-05-27)
PROC: 5A1D70Z Performance of Urinary Filtration, Intermittent, Less than 6 Hours Per Day (ICD-10-PCS; 2020-05-28)
DX: T82.838A Hemorrhage due to vascular prosthetic devices, implants and grafts, initial encounter (principal); E11.22 Type 2 diabetes mellitus with diabetic chronic kidney disease; I12.0 Hypertensive chronic kidney disease with stage 5 chronic kidney disease or end stage renal disease; N18.6 End stage renal disease; Y83.8 Other surgical procedures as the cause of abnormal reaction of the patient, or of later complication, without mention of misadventure at the time of the procedure; D50.0 Iron deficiency anemia secondary to blood loss (chronic); Z20.828 Contact with and (suspected) exposure to other viral communicable diseases; E11.42 Type 2 diabetes mellitus with diabetic polyneuropathy; E11.52 Type 2 diabetes mellitus with diabetic peripheral angiopathy with gangrene; L98.499 Non-pressure chronic ulcer of skin of other sites with unspecified severity; R78.81 Bacteremia; Z99.2 Dependence on renal dialysis; Z79.82 Long term (current) use of aspirin; Z79.02 Long term (current) use of antithrombotics/antiplatelets; Z86.14 Personal history of Methicillin resistant Staphylococcus aureus infection; Z86.73 Personal history of transient ischemic attack (TIA), and cerebral infarction without residual deficits; Z89.511 Acquired absence of right leg below knee; Y92.89 Other specified places as the place of occurrence of the external cause; Z74.01 Bed confinement status
CPT/HCPCS: 36415; 36430; 80048; 80202; 85018; 85025; 85384; 85610; 85730; 86886; 86900; 86901; 86920; 87081; 93925; 96374; 99285; J0360; J0885; J1200; J1644; J2060; J2270; J2597; J3370; J7030; J7060; P9016; U0003

== ENCOUNTER 2020-08-04 14:00 | Emergency (ER) | payer OTHER, SELFPAY ==
[~2020-08-04] VITALS: Ht 165.1 cm; Wt 62.8 kg
[2020-08-04 14:00] VITALS: BP 196/55
--- NOTE | 2020-08-04 14:00 | NUR ---
BIBA TAKEN TO BED 10
--- NOTE | 2020-08-04 14:08 | NUR ---
PT TAKEN TO CT VIA [facility] ACCOMPANIED BY [facility] DIRECTOR SAMEERA.
[2020-08-04] MEDS ORDERED: BEN50 PO (14:20)
[2020-08-04] MEDS ORDERED: DOCU-299 PO (14:20)
[2020-08-04] MEDS ORDERED: BISA-213 RC (14:20)
[2020-08-04] MEDS ORDERED: ASCO500T95 PO (14:20)
--- NOTE | 2020-08-04 14:20 | NUR ---
PT BACK IN BED 10, ATTACHED BACK TO MONITOR
--- NOTE | 2020-08-04 14:41 | NUR ---
C55 Y/O M BIBA LETHARGIC AFTER COMPLETED DIALYSIS AT [facility]: L SIDED STROKE, HTN, DM2, COVID 05/31, RENAL FAILURE, HYPERLIPIDEMIA, ANEMIA, AND LIVER CIRROSIS. TYPICALLY A&O X4, CURRENTLY A&O X0, RESPONDS SOMETIMES TO PAINFUL STIMULI. PT HAS G TUBE, 2L ON NC STAT 99%. DIAPERED. GLUCOSE UPON ARRIVAL 75. R GROIN SHUNT. UKRAINIAN SPEAKING.
--- NOTE | 2020-08-04 14:43 | NUR ---
TRIED CALLING NEXT OF [facility] GRETA OLIVIER AND LYNDSEY KOCH, NO ANSWER. WILL TRY TO CALL AGAIN LATER. TRYING TO FIND CODE STATUS AND LET FAMILY KNOW HE WILL BE TRANSFERRED TO [facility].
--- NOTE | 2020-08-04 14:47 | NUR ---
PAINT GRINDER AT BEDSIDE AT THIS TIME
--- NOTE | 2020-08-04 14:58 | NUR ---
CALLED BOTH CONTACTS ON FILE, NO ANSWER.
--- NOTE | 2020-08-04 15:12 | NUR ---
CALLED [facility], SPOKE WITH JOE SMITH RN FOR REPORT. REQUESED LINE PLACEMENT BEFORE TRANSFER, ETA TRANSPORT 5 MINUTES.
--- NOTE | 2020-08-04 15:23 | NUR ---
IO ESTABLISHED TO RIGHT LEG TO TIBIAL TUBEROSITY WITH 25MM, 15 GAUGE PRIOR TO TRANSFER.
[2020-08-04 15:26] VITALS: BP 181/46
--- NOTE | 2020-08-04 15:28 | NUR ---
Patient to be transferred to [facility]. Is being transferred due to POSSIBLE L SIDE BRAIN BLEED. Receiving facility has accepting physician and available space. ER physician has signed transfer form. Patient or responsible libertarian has agreed to transfer and signed form. Patient belongings inventoried and will be sent with patient. Copy of nursing notes, lab reports, EKG, Physicians Orders and X-rays to be sent with patient. Report called to JOE SMITH RN at receiving facility. [facility] ambulance service has been called for transfer.
== END 2020-08-04 15:28 | disposition designated cancer center or children's hospital (05) ==
LOC: MED 14:00
DX: G93.40 Encephalopathy, unspecified (principal); I60.32 Nontraumatic subarachnoid hemorrhage from left posterior communicating artery; E11.22 Type 2 diabetes mellitus with diabetic chronic kidney disease; I12.9 Hypertensive chronic kidney disease with stage 1 through stage 4 chronic kidney disease, or unspecified chronic kidney disease; N18.9 Chronic kidney disease, unspecified; E78.5 Hyperlipidemia, unspecified; G81.94 Hemiplegia, unspecified affecting left nondominant side; I63.9 Cerebral infarction, unspecified; Z89.512 Acquired absence of left leg below knee; Z89.511 Acquired absence of right leg below knee; Z79.899 Other long term (current) drug therapy; Z79.82 Long term (current) use of aspirin
CPT/HCPCS: 70450; 71045; 93005; 99291